=== PATIENT | female | born 1945 | race Caucasian/White ===

== ENCOUNTER 2017-07-31 05:22 | Emergency (ER) | payer MEDICARE ==
[2017-07-31] MEDS ORDERED: 0.9 % SODIUM CHLORIDE 1,000 ML BAG IV ONE (05:33)
[2017-07-31] MEDS ORDERED: MORPHINE SULFATE 5 MG/ML PFS IVP ONE (05:33)
[2017-07-31] MEDS ORDERED: ACETAMINOPHEN 1,000 MG/100 ML BTL IVPB ONE (05:33)
--- NOTE | 2017-07-31 05:36 | Emergency Department Record ---
History of Present Illness - General Chief complaint: Pain Stated complaint: HIP PAIN Time Seen by Provider: 07/31/17 05:30 Source: Patient, Family Mode of Arrival: Ambulatory Limitations: No limitations - History of Present Illness Initial comments: 72 yo female presents with left hip pain. She reports she was walking on her porch and turned when the pain initially started. No fall or blunt trauma. The pain is sharp with any movement. She has a history of sciatica on the right side. The pain does not radiate beyond the hip. No numbness or tingling on the left. No history of hip surgery on the left side. No leg swelling, No abnormal warmth or coolness. Her PCP is the [facility]. She does not see an orthopedist. MD Complaint: Joint pain -: Hour(s) (9.5) Location: Left, Other (hip) -: Yes Arthralgia, No Fever, Yes Myalgia, No Associated dyspnea, No Associated chest pain Radiation: Proximal Quality: Sharp Consistency: Constant Improves with: Immobilization Worsens with: Palpation, Walking, Weight bearing Associated Symptoms: Denies other symptoms - Related Data Previous Rx's Medication Instructions Recorded Hydrocodone/Acetaminophen [[place] 1 tab PO Q8H PRN #20 tab 07/31/17 5mg/325mg] Promethazine HCl [Phenergan] 12.5 mg PO Q8H PRN #15 tablet 07/31/17 Allergies Allergy/AdvReac Type Severity Reaction Status Date / Time No Known Allergies Allergy Unverified 04/23/17 12:57 Review of Systems Constitutional: Denies: Chills, Fever, Malaise, Weakness Eyes: Denies: Eye discharge, Eye pain, Photophobia, Vision change ENT: Denies: Congestion, Throat pain Respiratory: Denies: Cough Cardiovascular: Denies: Chest pain, Palpitations, Syncope Endocrine: Denies: Fatigue Gastrointestinal: Denies: Abdominal pain, Diarrhea, Nausea, Vomiting Genitourinary: Denies: Dysuria, Urgency Musculoskeletal: Reports: Arthralgia, Back pain, Myalgia. Denies: Joint swelling Skin: Denies: Bruising, Change in color, Rash Neurological: Denies: Confusion, Headache, Numbness, Paresthesias, Tingling, Tremors, Weakness Psychiatric: Reports: Anxiety Hematological/Lymphatic: Denies: Blood Clots, Easy bleeding, Easy bruising, Swollen glands Physical Exam - General General Appearance: Alert, Oriented x3, Cooperative, No acute distress Limitations: No limitations - Head Head exam: Atraumatic, Normocephalic, Normal inspection - Eye Eye exam: Normal appearance. negative: Conjunctival injection - ENT ENT exam: Normal exam, Mucous membranes moist Ear exam: Normal external inspection Nasal Exam: Normal inspection - Neck Neck exam: Normal inspection - Respiratory Respiratory exam: Normal lung sounds bilaterally. negative: Respiratory distress, Rhonchi, Stridor, Wheezes - Cardiovascular Cardiovascular Exam: Regular rate, Normal rhythm, Normal heart sounds Peripheral Pulses: 2+: Dorsalis Pedis (L) - GI/Abdominal GI/Abdominal exam: Soft. negative: Tenderness - Rectal Rectal exam: Deferred - exam: Deferred - Extremities Extremities exam: Normal inspection, Normal capillary refill, Tenderness. negative: Calf tenderness, Full ROM, Joint swelling, Pedal edema - Back Back exam: Reports: Normal inspection, Muscle spasm (left glutteal area tender to palpation). Denies: CVA tenderness (R), CVA tenderness (L) - Neurological Neurological exam: Alert, Normal gait, Oriented X3. negative: Altered, Motor sensory deficit - Psychiatric Psychiatric exam: Normal affect, Normal mood. negative: Agitated, Anxious - Skin Skin exam: Dry, Intact, Normal color, Warm Course - Reevaluation(s) Reevaluation #1: 07/31/17 06:43 The XR was reviewed No acute fracture or dislocation Mild degenerative changes on the prelim read. The patient reports some improvement of pain control. 07/31/17 07:13 The patient is feeling much better and reports she is comfortable for DC We discussed close follow up and and reasons to return to the ED Medical Decision Making - Lab Data Result diagrams: 07/31/17 05:55 07/31/17 05:55 Disposition Disposition: Discharge Clinical Impression: Hip pain, left Disposition: Home, Self-Care Condition: (1) Good Instructions: Hip Pain (ED) Additional Instructions: Follow up with your doctor as scheduled today for close follow up of your hip pain Prescriptions: Hydrocodone/Acetaminophen [[place] 5mg/325mg] 1 tab PO Q8H PRN #20 tab PRN Reason: Pain - General Promethazine HCl [Phenergan] 12.5 mg PO Q8H PRN #15 tablet PRN Reason: Nausea Forms: Patient Portal Access Time of Disposition: 07:14 Quality - Quality Measures Quality Measures: N/A - Blood Pressure Screening Does Patient Have Any of the Following: No Blood Pressure Classification: Hypertensive Reading Systolic Measurement: 156 Diastolic Measurement: 65 Screening for High Blood Pressure: < Pre-Hypertensive BP, F/U Documented > [ [id number]] Pre-Hypertensive Follow-up Interventions: Referral to alternative/primary care provider.
[2017-07-31] MEDS ORDERED: ONDANSETRON HCL IV 4 MG/2 ML VIAL IVP ONE (05:43)
[2017-07-31 06:02] LABS: BASO % 0.2 % (0-6); EOS % 2.6 % (0-6); GRAN % 68.2 % (47-80); HEMATOCRIT 37.3 % (35.0-47.0); HEMOGLOBIN 12.4 gm/dl (11.6-16.0); LYMPH % 21.9 % (16-45); MEAN CORPUSCULAR HEMOGLOBIN 30.9 pg (27-33); MEAN CORPUSCULAR HGB CONC 33.2 g/dl (32-36); MEAN PLATELET VOLUME 9.8 fl (7.4-10.4); MONO % 7.1 % (0-9); PLATELET COUNT 250 K/uL (130-400); RED BLOOD COUNT 4.01 M/uL (3.80-5.40); WHITE BLOOD COUNT W/O DIFF 8.8 K/uL (4.2-12.2)
[2017-07-31] MEDS ORDERED: PROMETHAZINE HCL 25 MG TABLET PO ONE (07:13)
[2017-07-31] MEDS ORDERED: HYDROCODONE/APAP 5/325MG TABLET PO ONE (07:13)
--- NOTE | 2017-08-01 07:36 | RADIOLOGY REPORT ---
EXAM: PELVIS AND LEFT HIP HISTORY: PAIN. TECHNIQUE: AP view of the pelvis and two views of the left hip were obtained. Comparison: None. FINDINGS: Negative for fracture or dislocation. The soft tissues are unremarkable. The joint spaces are preserved. IMPRESSION: NEGATIVE PELVIS AND LEFT HIP EXAMINATION. JOB NUMBER: [id number] MTDD
== END 2017-07-31 07:25 | disposition home or self-care (01) ==
LOC: ER 05:22
DX: M25.552 Pain in left hip (principal)
CPT/HCPCS: 99284 ×2; 96365; 96375; 85025; 80048; 73502; J2405; J2270; J7030; Q0170

== ENCOUNTER 2018-09-25 23:07 | Emergency (ER) | payer MEDICARE ==
--- NOTE | 2018-09-25 23:47 | Emergency Department Record ---
History of Present Illness - General Chief complaint: Toothache Stated complaint: FACIAL SWELLING Time Seen by Provider: 09/25/18 23:33 Source: Patient Mode of Arrival: Ambulatory Limitations: No limitations - History of Present Illness Initial comments: pt had a sudden onset of swelling in l lower jaw after eating cashews. she has a feeling of pressure but minimal pain. she has had a dental abscess in the past. she does not need pain meds as she has some at home MD complaint: Tooth pain Onset/Timin -: Minutes(s) Quality: Aching Context- Dental: History of dental caries Associated Symptoms: Toothache - Related Data Previous Rx's Medication Instructions Recorded Hydrocodone/Acetaminophen [[place] 1 tab PO Q8H PRN #20 tab 07/31/17 5mg/325mg] Amoxicillin/Potassium Clav 1 tab PO BID #14 tab 09/25/18 [Augmentin 875-125 Tablet] Allergies Allergy/AdvReac Type Severity Reaction Status Date / Time artificial sweeteners Allergy Mild hives Uncoded 08/20/17 11:33 Travel Screening - Travel/Exposure Within Last 30 Days Have you traveled within the last 30 days?: No - Travel/Exposure Within Last Year Have you traveled outside the [place] in the last year?: No - Additonal Travel Details Have you been exposed to anyone with a communicable illness?: No - Travel Symptoms Symptom Screening: None Review of Systems Reviewed: No additional complaints except as noted below Constitutional: Reports: As per HPI. Denies: Chills, Fever, Malaise, Night sweats, Weakness, Weight change Eyes: Reports: As per HPI. Denies: Eye discharge, Eye pain, Photophobia, Vision change ENT: Reports: As per HPI, Dental pain. Denies: Congestion, Ear pain, Epistaxis , Hearing loss, Throat pain Respiratory: Reports: As per HPI. Denies: Cough, Dyspnea, Hemoptysis, Stridor, Wheezes Cardiovascular: Reports: As per HPI. Denies: Arrhythmia, Chest pain, Dyspnea on exertion, Edema, Murmurs, Orthopnea, Palpitations, Paroxysmal nocturnal dyspnea, Rheumatic Fever, Syncope Endocrine: Reports: As per HPI. Denies: Fatigue, Heat or cold intolerance, Polydipsia, Polyuria Gastrointestinal: Reports: As per HPI. Denies: Abdominal pain, Constipation, Diarrhea, Hematemesis, Hematochezia, Melena, Nausea, Vomiting Genitourinary: Reports: As per HPI. Denies: Abnormal menses, Discharge, Dyspareunia, Dysuria, Frequency, Hematuria, Incontinence, Retention, Urgency Musculoskeletal: Reports: As per HPI. Denies: Arthralgia, Back pain, Gout, Joint swelling, Myalgia, Neck pain Skin: Reports: As per HPI. Denies: Bruising, Change in color, Change in hair/ nails, Lesions, Pruritus, Rash Neurological: Reports: As per HPI. Denies: Abnormal gait, Confusion, Headache, Numbness, Paresthesias, Seizure, Tingling, Tremors, Vertigo, Weakness Psychiatric: Reports: As per HPI. Denies: Anxiety, Auditory hallucinations, Depression, Homicidal thoughts, Suicidal thoughts, Visual hallucinations Hematological/Lymphatic: Reports: As per HPI. Denies: Anemia, Blood Clots, Easy bleeding, Easy bruising, Swollen glands Past Medical History - SOCIAL HISTORY Smoking Status: Never smoker Alcohol Use: None Drug Use: None - RESPIRATORY Hx Respiratory Disorders: No - CARDIOVASCULAR Hx Cardio Disorders: Yes Hx Hypertension: Yes Comment:: "small vessel disease" - NEURO Hx Neuro Disorders: No - GI Hx GI Disorders: No - Hx Genitourinary Disorders: No - ENDOCRINE Hx Endocrine Disorders: Yes Hx Diabetes: Yes - MUSCULOSKELETAL Hx Musculoskeletal Disorders: No Hx Back Injury: Yes (meningitis, sx at L4 - L5) - PSYCH Hx Psych Problems: No - HEMATOLOGY/ONCOLOGY Hx Hematology/Oncology Disorders: No Family Medical History Any Significant Family History?: No Hx Anxiety: Brother/Sister Hx Diabetes: Mother Hx Heart Disease: Father, Mother *Heart Comment: Father-90& occluded carotid Physical Exam - General General Appearance: Alert, Oriented x3, Cooperative, Mild distress - Head Head exam: Normal inspection - Eye Eye exam: Normal appearance, PERRL, EOMI Pupils: Normal accommodation - ENT ENT exam: Normal exam, Mucous membranes moist, Normal external ear exam, Normal orophraynx, TM's normal bilaterally Ear exam: Normal external inspection. negative: External canal tenderness Nasal Exam: Normal inspection. negative: Discharge, Sinus tenderness Mouth exam: Normal external inspection, Tongue normal Teeth exam: Dental caries, Dental tenderness #, Gingival enlargement, Other ( swelling of l lower jaw) Throat exam: Normal inspection. negative: Tonsillar erythema, Tonsillar exudate - Neck Neck exam: Normal inspection, Full ROM. negative: Tenderness - Respiratory Respiratory exam: Normal lung sounds bilaterally. negative: Respiratory distress - Cardiovascular Cardiovascular Exam: Normal rhythm, Normal heart sounds, Tachycardia - GI/Abdominal GI/Abdominal exam: Soft, Normal bowel sounds. negative: Tenderness - Rectal Rectal exam: Deferred - exam: Deferred - Extremities Extremities exam: Normal inspection, Full ROM, Normal capillary refill. negative: Tenderness - Back Back exam: Reports: Normal inspection, Full ROM. Denies: Muscle spasm, Rash noted, Tenderness - Neurological Neurological exam: Alert, CN II-XII intact, Normal gait, Oriented X3 - Psychiatric Psychiatric exam: Normal affect, Normal mood - Skin Skin exam: Dry, Intact, Normal color, Warm Course Vital Signs 09/25/18 23:21 Temperature 98.4 F Pulse Rate 114 H Respiratory 18 Rate Blood Pressure 163/67 Pulse Ox 95 Disposition Disposition: Discharge Clinical Impression: Dental abscess Disposition: Home, Self-Care Condition: (1) Good Instructions: Dental Abscess (ED) Additional Instructions: follow up with a dentist cami. moist heat to jaw. sleep elevated Prescriptions: Amoxicillin/Potassium Clav [Augmentin 875-125 Tablet] 1 tab PO BID #14 tab Quality - Quality Measures Quality Measures: N/A - Blood Pressure Screening Does Patient Have Any of the Following: Active Dx of HTN Blood Pressure Classification: Hypertensive Reading Systolic Measurement: 163 Diastolic Measurement: 67 Screening for High Blood Pressure: Patient Exclusion, Hx of HTN [G9744]
[2018-09-25] MEDS ORDERED: AMOXICILLIN/POTASSIUM CLAV 875MG/125MG TABLET PO ONE (23:48)
== END 2018-09-26 | disposition home or self-care (01) ==
LOC: ER 23:07
DX: K04.7 Periapical abscess without sinus (principal); I10 Essential (primary) hypertension; E11.9 Type 2 diabetes mellitus without complications
CPT/HCPCS: 99282

== ENCOUNTER 2019-03-16 20:34 | Emergency (ER) | payer MEDICARE ==
--- NOTE | 2019-03-16 21:15 | Emergency Department Record ---
History of Present Illness - General Chief complaint: Rectal bleeding Stated complaint: BLEEDING HEMOROID Time Seen by Provider: 03/16/19 21:09 Source: Patient Mode of Arrival: Ambulatory Limitations: No limitations - History of Present Illness Initial comments: 74 yo female presents to ED for evaluation of rectal bleeding and "rectal pressure" that began this afternoon. Patient reports a history of hemorrhoids, denies loose stools, abdominal pain, flank pain, or recent illness. Patient reports blood with bowel movement this evening prompting visit to the ED to determine if "silver nitrate is needed to stop the bleeding". Patient denies the use of anticoagulation medications. Patient did use hemorrhoid suppository prior to arrival. MD complaint: Blood streaked stool Onset/Timin -: Hour(s) Radiation: None Consistency: Constant Improves with: Rest Worsens with: Bowel movement Context: Hemorrhoids Associated Symptoms: Denies other symptoms Treatments Prior to Arrival: None - Related Data Home Medications Medication Instructions Recorded Confirmed Last Taken Acetaminophen [Tylenol 325Mg] 650 mg PO QHS 03/16/19 03/16/19 Unknown Allergies Allergy/AdvReac Type Severity Reaction Status Date / Time artificial sweeteners Allergy Mild hives Uncoded 08/20/17 11:33 Travel Screening - Travel/Exposure Within Last 30 Days Have you traveled within the last 30 days?: No - Travel Symptoms Symptom Screening: None Review of Systems Constitutional: Denies: Chills, Fever, Malaise, Night sweats Eyes: Denies: Eye discharge, Eye pain ENT: Denies: Congestion, Ear pain, Epistaxis Respiratory: Denies: Cough, Dyspnea Cardiovascular: Denies: Chest pain, Dyspnea on exertion Endocrine: Denies: Fatigue, Heat or cold intolerance Gastrointestinal: Reports: Hematochezia. Denies: Abdominal pain, Nausea, Vomiting Genitourinary: Denies: Incontinence, Retention Musculoskeletal: Denies: Arthralgia, Back pain Skin: Denies: Bruising, Change in color Neurological: Denies: Abnormal gait, Confusion, Headache, Seizure Psychiatric: Denies: Anxiety Hematological/Lymphatic: Denies: Anemia, Blood Clots Past Medical History - SOCIAL HISTORY Smoking Status: Never smoker Alcohol Use: None Drug Use: None - RESPIRATORY Hx Respiratory Disorders: No - CARDIOVASCULAR Hx Cardio Disorders: Yes Hx Hypertension: Yes Comment:: "small vessel disease" - NEURO Hx Neuro Disorders: No - GI Hx GI Disorders: No - Hx Genitourinary Disorders: No - ENDOCRINE Hx Endocrine Disorders: Yes Hx Diabetes: Yes - MUSCULOSKELETAL Hx Musculoskeletal Disorders: No Hx Back Injury: Yes (meningitis, sx at L4 - L5) - PSYCH Hx Psych Problems: No - HEMATOLOGY/ONCOLOGY Hx Hematology/Oncology Disorders: No Family Medical History Any Significant Family History?: Yes Hx Anxiety: Brother/Sister Hx Diabetes: Mother Hx Heart Disease: Father, Mother *Heart Comment: Father-90& occluded carotid Physical Exam - General General Appearance: Alert, Oriented x3, Cooperative, Mild distress Limitations: No limitations - Head Head exam: Atraumatic, Normocephalic, Normal inspection Head exam detail: negative: Abrasion, Contusion, Ivey's sign, General tenderness, Hematoma, Laceration - Eye Eye exam: Normal appearance. negative: Conjunctival injection, Periorbital swelling, Periorbital tenderness, Scleral icterus - ENT Ear exam: negative: Auricular hematoma, Auricular trauma Nasal Exam: negative: Active bleeding, Discharge, Dried blood, Foreign body Mouth exam: negative: Drooling, Laceration, Muffled voice, Tongue elevation Throat exam: negative: Tonsillar erythema, Tonsillomegaly, R peritonsillar mass, L peritonsillar mass - Neck Neck exam: Normal inspection. negative: Meningismus, Tenderness - Respiratory Respiratory exam: Normal lung sounds bilaterally. negative: Rales, Respiratory distress, Rhonchi, Stridor - Cardiovascular Cardiovascular Exam: Normal rhythm, Normal heart sounds, Tachycardia - GI/Abdominal GI/Abdominal exam: Soft. negative: Rebound, Rigid, Tenderness - Rectal Rectal exam: Heme (+) stool, Normal rectal tone, Other (No external hemorrhoids are present on examination). negative: Decreased rectal tone - exam: Deferred - Extremities Extremities exam: Normal inspection - Back Back exam: Denies: CVA tenderness (R), CVA tenderness (L) - Neurological Neurological exam: Alert, Normal gait, Oriented X3 - Psychiatric Psychiatric exam: Normal affect, Normal mood - Skin Skin exam: Normal color. negative: Abrasion Type of lesion: negative: abrasion Course Vital Signs 03/16/19 20:51 Temperature 98.5 F Pulse Rate [ 118 H Pulse Ox Probe] Respiratory 20 Rate Blood Pressure 171/77 [Left Arm] Pulse Ox 99 - Reevaluation(s) Reevaluation #1: 03/16/19 21:26 Patient was seen and examined, no external hemorrhoids are present on examination. Rectal examination is heme positive on exam, no pain on examination. No abdominal pain symptoms are present on examination, and colitis or inflammatory bowel condition appears very unlikely based on the patient's examination. History and examination appear c/w internal hemorrhoids. Recommended stool softeners and rectal suppositories as needed. Patient appears stable for discharge at this time. Disposition Disposition: Discharge Clinical Impression: Internal hemorrhoid, bleeding Disposition: Home, Self-Care Condition: (2) Stable Instructions: Hemorrhoids (ED) Additional Instructions: Return to ED if your symptoms worsen or if you have any concerns. Stool softeners and Tucks as directed. Follow-up with your family doctor in 3-5 days as directed. Forms: Patient Portal Access Time of Disposition: 21:15 Quality - Quality Measures Quality Measures: N/A - Blood Pressure Screening Does Patient Have Any of the Following: Active Dx of HTN Blood Pressure Classification: Hypertensive Reading Systolic Measurement: 171 Diastolic Measurement: 77 Screening for High Blood Pressure: Patient Exclusion, Hx of HTN [G9744]
== END 2019-03-16 21:34 | disposition home or self-care (01) ==
LOC: ER 20:34
DX: K64.8 Other hemorrhoids (principal); I10 Essential (primary) hypertension
CPT/HCPCS: 99282

== ENCOUNTER 2019-04-26 07:32 | Emergency (ER) | payer MEDICARE ==
[2019-04-26] MEDS ORDERED: DIAZEPAM 5 MG TABLET PO ONE (07:47)
[2019-04-26] MEDS ORDERED: KETOROLAC 30 MG/ML VIAL IVP ONE (07:48)
--- NOTE | 2019-04-26 07:56 | Emergency Department Record ---
History of Present Illness - General Chief complaint: Pain Stated complaint: HIP PAIN Time Seen by Provider: 04/26/19 07:46 Source: Patient, Family (son) Mode of Arrival: Ambulatory Limitations: No limitations - History of Present Illness Initial comments: Pt ambulates into the ED with son's assistance with complaint of waking with pain in the right buttock/hip. Pt denies trauma, injury, or fall. Hx of similar in the past from "arthritis". Over 10 years ago pt had leg pains that led to "back surgery in [place], [place]". Todays pain onset at home during the night, pt was painfree yesterday and when she went to bed. 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 She denies incontinence of urine or bowel. Pt took no meds this AM for pain prior to coming to the ED. She does use Tramadol at home from chronic pains related to arthritis. She is not using narcotic pain meds at this time. She has no other complaints. No recent illness, fever, chills, CP, VALERIE. - Related Data Home Medications Medication Instructions Recorded Confirmed Last Taken Atorvastatin Calcium [Lipitor] 10 mg PO DAILY 04/26/19 04/26/19 Unknown Tramadol HCl [Ultram] 50 mg PO BID PRN 04/26/19 04/26/19 Unknown Previous Rx's Medication Instructions Recorded Diazepam [Valium] 5 mg PO Q8H 3 Days #8 tab 04/26/19 Allergies Allergy/AdvReac Type Severity Reaction Status Date / Time artificial sweeteners Allergy Mild hives Uncoded 08/20/17 11:33 Travel Screening - Travel/Exposure Within Last 30 Days Have you traveled within the last 30 days?: No - Travel/Exposure Within Last Year Have you traveled outside the [place] in the last year?: No - Additonal Travel Details Have you been exposed to anyone with a communicable illness?: No - Travel Symptoms Symptom Screening: None Review of Systems Constitutional: Denies: Chills, Fever, Night sweats, Weakness Eyes: Denies: Eye discharge, Photophobia ENT: Denies: Congestion Respiratory: Denies: Cough, Wheezes Cardiovascular: Denies: Arrhythmia, Chest pain, Syncope Endocrine: Denies: Fatigue, Polyuria Gastrointestinal: Denies: Abdominal pain, Diarrhea, Nausea, Vomiting Musculoskeletal: Reports: As per HPI Skin: Denies: Bruising, Rash Neurological: Denies: Confusion, Headache, Tremors, Weakness Psychiatric: Denies: Anxiety Hematological/Lymphatic: Denies: Anemia Past Medical History - SOCIAL HISTORY Smoking Status: Never smoker Drug Use: None - RESPIRATORY Hx Respiratory Disorders: No - CARDIOVASCULAR Hx Cardio Disorders: Yes Hx Hypertension: Yes Comment:: "small vessel disease" - NEURO Hx Neuro Disorders: No - GI Hx GI Disorders: No - Hx Genitourinary Disorders: No - ENDOCRINE Hx Endocrine Disorders: Yes Hx Diabetes: Yes - MUSCULOSKELETAL Hx Musculoskeletal Disorders: No Hx Back Injury: Yes (meningitis, sx at L4 - L5) - PSYCH Hx Psych Problems: No - HEMATOLOGY/ONCOLOGY Hx Hematology/Oncology Disorders: No Family Medical History Any Significant Family History?: No Hx Anxiety: Brother/Sister Hx Diabetes: Mother Hx Heart Disease: Father, Mother *Heart Comment: Father-90& occluded carotid Physical Exam - General General Appearance: Alert, Oriented x3, Cooperative, Moderate distress - Head Head exam: negative: Atraumatic - Eye Eye exam: negative: Normal appearance, PERRL, EOMI - ENT ENT exam: Normal exam, Mucous membranes moist, Normal external ear exam, Normal orophraynx, TM's normal bilaterally - Neck Neck exam: Normal inspection, Full ROM. negative: Tenderness - Respiratory Respiratory exam: Normal lung sounds bilaterally. negative: Respiratory dis tress, Wheezes - Cardiovascular Cardiovascular Exam: Regular rate, Normal rhythm. negative: Tachycardia Peripheral Pulses: 2+: Radial (R), Radial (L) - GI/Abdominal GI/Abdominal exam: Soft, Normal bowel sounds. negative: Tenderness - Extremities Extremities exam: Normal inspection, Full ROM. negative: Calf tenderness, Joint swelling (Point tenderness to the right piriformis area without skin changes. Muscle tightness noted. Full motion at the hip right without crepitance, no right knee or ankle pain, no calf tenderness. ) - Back Back exam: Reports: Normal inspection. Denies: CVA tenderness (R), CVA tendern ess (L), Muscle spasm, Paraspinal tenderness, Vertebral tenderness - Neurological Neurological exam: Abnormal gait, Alert, Oriented X3, Reflexes normal. negativ e: Motor sensory deficit - Psychiatric Psychiatric exam: Normal affect, Normal mood - Skin Skin exam: Normal color. negative: Rash (no evidence Zoster in painful area of right buttock) Course Vital Signs 04/26/19 07:36 Temperature 97.2 F L Pulse Rate 83 Respiratory 18 Rate Blood Pressure 153/55 Pulse Ox 98 - Reevaluation(s) Reevaluation #1: 04/26/19 07:59 Seen and exam with son and RN present. IV meds for pain and muscle spasm. XRays ordered. Reevaluation #2: 04/26/19 08:27 XRAY with out FX. Meds helping. Discussed plan and dx with pt and son. Hoeme with Valium for spasm, ice/heat to area, fm dic follow up. Return here is and issues. Caution with meds at home. No driving, alcohol, or activities with meds. Medical Decision Making - Data Complexity MDM Data: X-Ray Ordered and/or Reviewed - Radiology Data Radiology results: Image reviewed -: Radiology Exam Interpreted by Myself Disposition Disposition: Discharge Clinical Impression: Spasm of piriformis muscle, Acute right hip pain Condition: (2) Stable Instructions: Pain Management in the Elderly (ED), RICE Therapy (ED) Additional Instructions: Take medications as ordered. No alcohol or driving with medications. Ice or heat to the area. See you primary doctor in 2-3 days to recheck or return to the ED as needed. Prescriptions: Diazepam [Valium] 5 mg PO Q8H 3 Days #8 tab Forms: Patient Portal Access Time of Disposition: 08:34 Quality - Quality Measures Quality Measures: N/A - Blood Pressure Screening Does Patient Have Any of the Following: No Blood Pressure Classification: Hypertensive Reading Systolic Measurement: 153 Diastolic Measurement: 55 Screening for High Blood Pressure: Patient Exclusion, Hx of HTN [G9744]
--- NOTE | 2019-04-26 14:43 | RADIOLOGY REPORT ---
EXAM: RIGHT HIP WITH AP PELVIS HISTORY: SUDDEN ONSET OF RIGHT HIP PAIN THIS MORNING, NO KNOWN INJURY. TECHNIQUE: AP view of the pelvis and AP and lateral views of the right hip were obtained. Comparison: No prior right hip series. AP pelvis from the left hip series of 07/31/17. FINDINGS: The right hip appears essentially negative. The joint space is maintained appearing essentially unchanged from the prior 07/31/17 study. No definite fracture, dislocation, or destructive lesion identified. IMPRESSION: THE RIGHT HIP APPEARS NEGATIVE. JOB [facility]BER: [id number] [facility]
== END 2019-04-26 08:42 | disposition home or self-care (01) ==
LOC: ER 07:32
DX: M25.551 Pain in right hip (principal); M62.838 Other muscle spasm; I10 Essential (primary) hypertension
CPT/HCPCS: 96374; 99283; J1885

== ENCOUNTER 2019-05-15 21:23 | Inpatient (IN) | payer MEDICARE ==
[2019-05-15] MEDS ORDERED: HYDROMORPHONE HCL 2 MG/ML VIAL IVP ONE (21:28)
[2019-05-15] MEDS ORDERED: DIAZEPAM (VALIUM) 5MG/ML **10ML VIAL IVP ONE (21:28)
--- NOTE | 2019-05-15 21:36 | Emergency Department Record ---
History of Present Illness - General Chief Complaint: Back Pain/Injury Stated Complaint: BACK PAIN Time Seen by Provider: 05/15/19 21:28 Source: Patient, EMS Mode of Arrival: EMS Limitations: No limitations - History of Present Illness Initial Comments: 74 yo female presents to ED for worsening back pain symptoms for the past 2 weeks. Patient reports recent MRI of the spine demonstrating "bulging discs" resulting in her pain symptoms. Patient was prescribed Hydrocodone for her pain symptoms through her PCP, patient reports worsening symptoms of spasms that have made ambulating too difficult due to her pain symptoms. Patient denies numbness, tingling, or extremity weakness symptoms. Patient also denies urinary retention symptoms. MD Complaint: Back pain Onset/Timin -: Week(s) Similar Symptoms Previously: Yes Radiation: Right leg Severity: Severe Quality: Burning Consistency: Constant Improves With: None Worsens With: None Associated Symptoms: Denies other symptoms Treatments Prior to Arrival: Prescription analgesics - Related Data Home Medications Medication Instructions Recorded Confirmed Last Taken Atorvastatin Calcium 20 mg PO DAILY 05/15/19 05/15/19 Unknown Allergies Allergy/AdvReac Type Severity Reaction Status Date / Time artificial sweeteners Allergy Mild hives Uncoded 05/15/19 21:25 Review of Systems Constitutional: Denies: Chills, Fever, Malaise, Night sweats Eyes: Denies: Eye discharge, Eye pain ENT: Denies: Congestion, Ear pain, Epistaxis Respiratory: Denies: Cough, Dyspnea Cardiovascular: Denies: Chest pain, Dyspnea on exertion Endocrine: Denies: Fatigue, Heat or cold intolerance Gastrointestinal: Denies: Abdominal pain, Nausea, Vomiting Genitourinary: Denies: Incontinence, Retention Musculoskeletal: Reports: Back pain. Denies: Arthralgia, Gout, Joint swelling Skin: Denies: Bruising, Change in color Neurological: Denies: Abnormal gait, Confusion, Headache, Seizure Psychiatric: Denies: Anxiety Hematological/Lymphatic: Denies: Anemia, Blood Clots Past Medical History - SOCIAL HISTORY Smoking Status: Never smoker Drug Use: None - RESPIRATORY Hx Respiratory Disorders: No - CARDIOVASCULAR Hx Cardio Disorders: Yes Hx Hypertension: Yes Comment:: "small vessel disease" - NEURO Hx Neuro Disorders: No - GI Hx GI Disorders: No - Hx Genitourinary Disorders: No - ENDOCRINE Hx Endocrine Disorders: Yes Hx Diabetes: Yes - MUSCULOSKELETAL Hx Musculoskeletal Disorders: No Hx Back Injury: Yes (meningitis, sx at L4 - L5) - PSYCH Hx Psych Problems: No - HEMATOLOGY/ONCOLOGY Hx Hematology/Oncology Disorders: No Family Medical History Hx Anxiety: Brother/Sister Hx Diabetes: Mother Hx Heart Disease: Father, Mother *Heart Comment: Father-90& occluded carotid Physical Exam - General General Appearance: Alert, Oriented x3, Cooperative, Moderate distress (due to pain symptoms) Limitations: No limitations - Head Head exam: Atraumatic, Normocephalic, Normal inspection Head exam detail: negative: Abrasion, Contusion, Ivey's sign, General tenderness, Hematoma, Laceration - Eye Eye exam: Normal appearance. negative: Conjunctival injection, Periorbital swelling, Periorbital tenderness, Scleral icterus - ENT Ear exam: negative: Auricular hematoma, Auricular trauma Nasal Exam: negative: Active bleeding, Discharge, Dried blood, Foreign body Mouth exam: negative: Drooling, Laceration, Muffled voice, Tongue elevation - Neck Neck exam: Normal inspection. negative: Meningismus, Tenderness - Respiratory Respiratory exam: Normal lung sounds bilaterally. negative: Rales, Respiratory distress, Rhonchi, Stridor - Cardiovascular Cardiovascular Exam: Regular rate, Normal rhythm, Normal heart sounds - GI/Abdominal GI/Abdominal exam: Soft. negative: Rebound, Rigid, Tenderness - Rectal Rectal exam: Deferred - exam: Deferred - Extremities Extremities exam: Normal inspection. negative: Pedal edema, Tenderness - Neurological Neurological exam: Alert, Oriented X3. negative: Motor sensory deficit (EHL 5/5 and symmetric bilaterally) - Skin Skin exam: Normal color. negative: Abrasion Type of lesion: negative: abrasion Course - Reevaluation(s) Reevaluation #1: 05/15/19 21:30 MRI lumbar spine was reviewed from 05/01/19: Signal enhancement of the root of S1, may represent disc bulge vs. scarring from previous bryce-laminectomy Mild disc bulge L4-L5 without canal stenosis Advanced facet arthropathy Multi-level foraminal narrowing of varying degrees Patient was seen and examined, will administer Valium and Hydromorphone IV and reassess. Reevaluation #2: 05/15/19 21:57 Patient reassessed, reports that she is feeling much more comfortable. Will monitor for respiratory depression via oxygen monitoring. Reevaluation #3: 05/15/19 22:40 Patient was reassessed, reports that her pain symptoms are improved however her spasms continue to be intermittently result in pain with position changes. Will admit for pain control and possible PT/OT consultation tomorrow. Patient is in agreement with the plan of care as discussed. Reevaluation #4: 05/16/19 06:50 Case was discussed with Lee Jay NP, will accept admission at this time. Disposition Disposition: Admit Clinical Impression: Intractable low back pain Disposition: Still a Patient at [facility] Decision to Admit: Admit from ER Decision to Admit Date: 05/15/19 Decision to Admit Time: 22:42 Condition: (2) Stable Time of Disposition: 22:42 Quality - Quality Measures Quality Measures: N/A - Blood Pressure Screening Does Patient Have Any of the Following: Active Dx of HTN Blood Pressure Classification: Hypertensive Reading Systolic Measurement: 141 Diastolic Measurement: 68 Screening for High Blood Pressure: Patient Exclusion, Hx of HTN [[id number]]
[2019-05-15] MEDS ORDERED: 0.9 % SODIUM CHLORIDE 1000ML 250 ML IV SCH (21:45)
[2019-05-15] MEDS ORDERED: METHYLPREDNISOLONE PF 125MG/VIAL IVP ONE (22:12)
[2019-05-15] MEDS: HYDROMORPHONE HCL 2 MG/ML VIAL IVP PRN (23:36)
[2019-05-15] MEDS ORDERED: ATORVASTATIN 20 MG TABLET PO SCH (23:45)
[2019-05-15] MEDS ORDERED: LISINOPRIL 10 MG TABLET PO SCH (23:45)
[2019-05-15] MEDS: LISINOPRIL 10 MG TABLET PO SCH (23:57)
[2019-05-15] MEDS: SULFASALAZINE 500 MG PO SCH (23:59)
[2019-05-16] MEDS: DIAZEPAM (VALIUM) 5MG/ML **10ML VIAL IVP PRN ×3 (02:30→23:02)
[2019-05-16] MEDS: HYDROMORPHONE HCL 2 MG/ML VIAL IVP PRN ×3 (02:31→06:46)
[2019-05-16] MEDS ORDERED: ALBUTEROL HFA 8 GM INHALER INH SCH (06:00)
[2019-05-16] MEDS ORDERED: ALBUTEROL HFA 8 GM INHALER INH PRN (08:49)
[2019-05-16] MEDS ORDERED: PROMETHAZINE HCL 25 MG TABLET PO PRN (09:32)
[2019-05-16] MEDS: HYDROCODONE/APAP 10/325 TABLET PO PRN ×2 (09:37→23:04)
[2019-05-16] MEDS: HYDROCHLOROTHIAZIDE 25 MG TABLET PO SCH (09:38)
[2019-05-16] MEDS: SULFASALAZINE 500 MG PO SCH ×2 (09:38→23:06)
--- NOTE | 2019-05-16 10:41 | History & Physical ---
History of Present Illness - Date of Service Date of Service for History & Physical: 05/16/19 - History of Present Illness Admitting Diagnosis: Intractable low back pain. History degenerative disc disease History of Present Illness: 74 year old female patient presented to ED for intractable worsening of her chronic low-back pain. Patient has noted progressive worsening of symptoms over the past 2-4 weeks. She has been seen by her PCP twice, and had an MRI completed 05/01/19, which indicated prior hemilaminectomy changes at L5-S1, post- surgical scarring vs posterior displacement of S1 nerve root secondary to disk bulge and/or small right paracentral disk protrusion, mild disk bulging at L4-L5 without central canal stenosis, advanced facet arthropathy, and multilevel neural foraminal narrowing. Patient states she was given Prednisone and [place] 5/325 from PCP with only minimal relief from the Prednisone, and no relief from [place]. Also states she has been referred to Dr. Gonzalez for pain management and is scheduled to see him this coming . Denies any new injury or trauma. Patient noted Friday morning sudden increase in pain level and was unable to get out of bed due to the pain. Reports low-back pain that radiates down her right buttock and right leg. Patient states the pain continued to progress, leading to her presenting to ED. Patient reports an active lifestyle at baseline, walking 4 miles per day and being independent with ADLs. Past medical history includes CKD stage 3, HTN, elevated lipids, cholecystectomy, CAD, RA, and previous hemilaminectomy at L5-S1. PCP: Ayah Caceres NP/Dr. Smyth Corrosion Control Technician: Dr. Luke ED Course: Solumedrol 125mg Valium 5mg Dilaudid 0.5mg 05/16/19: Patient A&O x 4, very uncomfortable in bed. Patient visably shaking and tearful due to increased pain. Patient denies being able to eat or drink a normal diet for several days prior to arrival due to increased pain. Reports minimal relief from [place], Valium, and Solumedrol. Noted partial pain relief from Dilaudid. Travel Screening - Travel/Exposure Within Last 30 Days Have you traveled within the last 30 days?: No - Travel/Exposure Within Last Year Have you traveled outside the [place] in the last year?: No - Additonal Travel Details Have you been exposed to anyone with a communicable illness?: No - Travel Symptoms Symptom Screening: None Review of Systems Reviewed: No additional complaints except as noted below Constitutional: Denies: Chills, Fever, Malaise, Night sweats Eyes: Denies: Eye discharge, Eye pain ENT: Denies: Congestion, Ear pain, Epistaxis Respiratory: Denies: Cough, Dyspnea Cardiovascular: Denies: Chest pain, Dyspnea on exertion Endocrine: Denies: Fatigue, Heat or cold intolerance Gastrointestinal: Denies: Abdominal pain, Nausea, Vomiting Genitourinary: Denies: Incontinence, Retention Musculoskeletal: Reports: Back pain. Denies: Arthralgia, Gout, Joint swelling Skin: Denies: Bruising, Change in color Neurological: Denies: Abnormal gait, Confusion, Headache, Seizure Psychiatric: Denies: Anxiety Hematological/Lymphatic: Denies: Anemia, Blood Clots Past Medical History - SOCIAL HISTORY Smoking Status: Never smoker Drug Use: None - RESPIRATORY Hx Respiratory Disorders: No - CARDIOVASCULAR Hx Cardio Disorders: Yes Hx Hypertension: Yes Comment:: "small vessel disease" - NEURO Hx Neuro Disorders: No - GI Hx GI Disorders: No - Hx Genitourinary Disorders: No - ENDOCRINE Hx Endocrine Disorders: Yes Hx Diabetes: Yes - MUSCULOSKELETAL Hx Musculoskeletal Disorders: No Hx Back Injury: Yes (meningitis, sx at L4 - L5) - PSYCH Hx Psych Problems: No - HEMATOLOGY/ONCOLOGY Hx Hematology/Oncology Disorders: No Family Medical History Hx Anxiety: Brother/Sister Hx Diabetes: Mother Hx Heart Disease: Father, Mother *Heart Comment: Father-90& occluded carotid H&P Meds/Allergies - Allergies Allergies: Allergies Allergy/AdvReac Type Severity Reaction Status Date / Time artificial sweeteners Allergy Mild hives Uncoded 05/15/19 21:25 - Home Medications Home Medications Medication Instructions Recorded Confirmed Last Taken Atorvastatin Calcium 20 mg PO DAILY 05/15/19 05/15/19 Unknown - Active Medications Active Medications: Current Medications Hydrocodone Bitart/Acetaminophen ([place] 10mg/325mg) 1 each PO Q8H PRN PRN Reason: PAIN - MILD TO MODERATE (1-7) Last Admin: 05/16/19 09:37 Dose: 1 each Documented by: Albuterol Sulfate (Ventolin Hfa) 2 puff INH RESP.Q4H PRN PRN Reason: WHEEZING Atorvastatin Calcium (Lipitor) 20 mg PO QHS [place] Diazepam (Diazepam) 5 mg IVP Q8H PRN PRN Reason: SPASMS Last Admin: 05/16/19 10:39 Dose: 5 mg Documented by: Hydrochlorothiazide (Hctz 25mg) 25 mg PO DAILY ON LICENSE OF [facility] Last Admin: 05/16/19 09:38 Dose: 25 mg Documented by: Lisinopril (Zestril) 10 mg PO QHS ON LICENSE OF [facility] Last Admin: 05/15/19 23:57 Dose: 10 mg Documented by: Patient Own Med: Sulfasalazine 500 Mg Tablet 1 each PO BID ON LICENSE OF [facility] Last Admin: 05/16/19 09:38 Dose: 1 each Documented by: Promethazine HCl (Phenergan) 25 mg PO Q6H PRN PRN Reason: NAUSEA Last Admin: 05/16/19 09:37 Dose: 25 mg Documented by: Physical Exam - Vital Signs Vital Signs: Vital Signs - Last 24 Hrs Temp Pulse Pulse Resp BP BP BP 05/16/19 09:00 18 05/16/19 07:30 97.7 F 103 H 17 135/58 05/15/19 23:25 92 H 16 146/56 05/15/19 23:15 97.7 F 83 20 143/54 05/15/19 22:20 89 20 05/15/19 21:24 98.7 F 118 H 26 H 141/68 Pulse Ox 05/16/19 09:00 05/16/19 07:30 97 05/15/19 23:25 97 05/15/19 23:15 99 05/15/19 22:20 95 05/15/19 21:24 100 - General General Appearance: Alert, Oriented x3, Cooperative, Moderate distress (due to pain symptoms) Limitations: No limitations - Head Head exam: Atraumatic, Normocephalic, Normal inspection Head exam detail: negative: Abrasion, Contusion, Ivey's sign, General tenderness, Hematoma, Laceration - Eye Eye exam: Normal appearance. negative: Conjunctival injection, Periorbital swelling, Periorbital tenderness, Scleral icterus - ENT ENT exam: Normal exam, Mucous membranes moist Ear exam: Normal external inspection. negative: Auricular hematoma, Auricular trauma Nasal Exam: negative: Active bleeding, Discharge, Dried blood, Foreign body Mouth exam: negative: Drooling, Laceration, Muffled voice, Tongue elevation - Neck Neck exam: Normal inspection. negative: Meningismus, Tenderness - Respiratory Respiratory exam: Normal lung sounds bilaterally. negative: Rales, Respiratory distress, Rhonchi, Stridor - Cardiovascular Cardiovascular Exam: Normal rhythm, Normal heart sounds, Tachycardia Peripheral Pulses: 2+: Radial (R), Radial (L), Dorsalis Pedis (R), Dorsalis Pedis (L) - GI/Abdominal GI/Abdominal exam: Soft, Normal bowel sounds. negative: Rebound, Rigid, Tenderness - Rectal Rectal exam: Deferred - exam: Deferred - Extremities Extremities exam: Normal inspection. negative: Pedal edema, Tenderness - Neurological Neurological exam: Abnormal gait (due to pain), Alert, Oriented X3, Other (LLE strength > RLE strength) - Skin Skin exam: Dry, Normal color, Warm. negative: Abrasion Type of lesion: negative: abrasion Results - Labs Result Diagrams: 05/16/19 11:58 05/16/19 11:58 - Imaging and Cardiology Lumbar Spine MRI Status: Report reviewed VTE H&P Assessment - Risk for VTE Risk for VTE: Yes Risk Level: Moderate Risk Assessment Date: 05/16/19 Risk Assessment Time: 12:16 VTE Orders Placed or Will Be Placed: Yes Plan - Detailed Diagnosis and Plan (1) Intractable low back pain Current Visit: Yes Status: Acute Base Code: M54.5 - LOW BACK PAIN Comment: 05/16/19: - MRI 05/01/19: surgical hemilaminectomy changes at L5-S1, S1 nerve root signal chages due to surgical scarring vs posterior displacement of nerve root secondary to disck bulging or protrusion, disk bulging at L4-L5, advanced facet arthropathy, no lumbar spinal stenosis, multilevel neural foraminal narrowing - Valium 5mg IVP q8h prn - [place] 10/325, DC dilaudid due to urinary retention - Solumedrol 125mg IVP in ED, 60mg daily continued - Appt with Dr. Gonzalez scheduled (2) Urinary tract infection Current Visit: Yes Status: Acute Base Code: N39.0 - URINARY TRACT INFECTION, SITE NOT SPECIFIED Comment: 05/16/19: - UA: large leuk, 3-5 WBC - Rocephin 1gm IVP q24h - IV fluids NS 0.9% @ 75ml/hr - Encourage PO fluids (3) Urinary retention Current Visit: Yes Status: Acute Base Code: R33.9 - RETENTION OF URINE, UNSPECIFIED Comment: 05/16/19: - Bladder scan indicated >900ml, straight cath performed - Urinary retention due to UTI vs dilaudid use vs neuro changes due to disc bulging - DC dilaudid - Bladder scan q4h, straight cath prn - Consider neurosurgery consult if symptoms persist (4) DVT prophylaxis Current Visit: Yes Status: Acute Base Code: Z29.9 - ENCOUNTER FOR PROPHYLACTIC MEASURES, UNSPECIFIED Comment: 05/16/19: - Moderate risk due to age, hospitalization, and decreased mobility - Lovenox 40mg SQ daily (5) Full code status Current Visit: Yes Status: Acute Base Code: Z78.9 - OTHER SPECIFIED HEALTH STATUS Comment: 05/16/19: - Full code this admission
[2019-05-16 11:22] LABS: URINE APPEARANCE CLEAR; URINE BILIRUBIN NEGATIVE (NEGATIVE); URINE BLOOD NEGATIVE (NEGATIVE); URINE COLOR YELLOW; URINE GLUCOSE (UA) NEGATIVE (NEGATIVE); URINE KETONE NEGATIVE (NEGATIVE); URINE LEUKOCYTE ESTERASE LARGE (NEGATIVE); URINE NITRITE NEGATIVE (NEGATIVE); URINE PROTEIN NEGATIVE (NEGATIVE); URINE UROBILINOGEN 0.2 E.U./dL (0.20 - 1.00)
[2019-05-16 11:50] LABS: URINE BACTERIA NONE SEEN; URINE EPITHELIAL CELLS 0 - 2 (FEW); URINE RBC NONE SEEN (NONE SEEN)
[2019-05-16] MEDS ORDERED: CEFTRIAXONE 1GM/50ML BAG 1 GM/50 ML BAG IVPB SCH (12:00)
[2019-05-16] MEDS: METHYLPREDNISOLONE PF 125MG/VIAL IVP SCH (12:12)
[2019-05-16] MEDS ORDERED: MORPHINE SULFATE 10MG/1ML **1ML VIAL IVP SCH (12:15)
[2019-05-16] MEDS: GABAPENTIN 100 MG CAPSULE PO SCH ×2 (12:21→23:06)
[2019-05-16] MEDS: 0.9 % SODIUM CHLORIDE 1000ML 1,000 ML IV SCH (12:22)
[2019-05-16] MEDS: MORPHINE SULFATE 10MG/1ML **1ML VIAL IVP PRN ×2 (12:26→17:22)
[2019-05-16 12:35] LABS: ABSOLUTE NEUTROPHIL COUNT 12.16; HEMATOCRIT 37.2 % (35.0-47.0); HEMOGLOBIN 12.5 gm/dl (11.6-16.0); MEAN CELL VOLUME 92.1 fl (81-97); MEAN CORPUSCULAR HEMOGLOBIN 30.9 pg (27-33); MEAN CORPUSCULAR HGB CONC 33.6 g/dl (32-36); MEAN PLATELET VOLUME 9.4 fl (7.4-10.4); PLATELET COUNT 302 K/uL (130-400); RED BLOOD COUNT 4.04 M/uL (3.80-5.40); RED CELL DISTRIBUTION WIDTH 13.7 % (11.5-14.5); WHITE BLOOD COUNT W/O DIFF 14.5 K/uL (4.2-12.2)
[2019-05-16 12:52] LABS: ALB/GLOB RATIO 1.8 (1.1-1.8); ALBUMIN 4.7 g/dL (4.0-5.0); ALKALINE PHOSPHATASE 76 U/L (35-104); ALT/SGPT 22 U/L (<33); AST/SGOT 23 U/L (10.0-35.0); BLOOD UREA NITROGEN 21 mg/dL (8-23); CREATININE 0.9 mg/dL (0.5-0.9); EST GLOMERULAR FILTRATION RATE > 60 mL/min; GLUCOSE,RANDOM 175 mg/dL (74-109); TOTAL PROTEIN 7.3 g/dL (6.6-8.7)
[2019-05-16] MEDS: CEFTRIAXONE 1GM/50ML BAG 1 GM/50 ML BAG IVPB SCH (12:52)
[2019-05-16] MEDS: TAMSULOSIN HCL 0.4 MG CAP.ER.24H PO SCH (13:16)
[2019-05-16] MEDS: LISINOPRIL 10 MG TABLET PO SCH (23:05)
[2019-05-16] MEDS: ATORVASTATIN 20 MG TABLET PO SCH (23:06)
[2019-05-16] MEDS: SENNOSIDES/DOCUSATE SODIUM UD CAPSULE PO PRN (23:39)
[2019-05-17] MEDS: CEFTRIAXONE 1GM/50ML BAG 1 GM/50 ML BAG IVPB SCH ×3 (00:54→21:25)
[2019-05-17] MEDS: 0.9 % SODIUM CHLORIDE 1000ML 1,000 ML IV SCH ×2 (00:55→15:16)
[2019-05-17 06:28] LABS: ABSOLUTE NEUTROPHIL COUNT 7.06; BASO % 0.1 % (0-6); GRAN % 63.3 % (47-80); HEMATOCRIT 33.3 % (35.0-47.0); HEMOGLOBIN 10.8 gm/dl (11.6-16.0); LYMPH % 29.7 % (16-45); MEAN CELL VOLUME 94.9 fl (81-97); MEAN CORPUSCULAR HGB CONC 32.4 g/dl (32-36); MEAN PLATELET VOLUME 9.4 fl (7.4-10.4); MONO % 6.9 % (0-9); PLATELET COUNT 263 K/uL (130-400); RED BLOOD COUNT 3.51 M/uL (3.80-5.40); RED CELL DISTRIBUTION WIDTH 14.1 % (11.5-14.5); WHITE BLOOD COUNT W/O DIFF 11.2 K/uL (4.2-12.2)
[2019-05-17 06:34] LABS: MEAN CORPUSCULAR HEMOGLOBIN 30.7 pg (27-33)
[2019-05-17] MEDS: DIAZEPAM (VALIUM) 5MG/ML **10ML VIAL IVP PRN (06:45)
[2019-05-17] MEDS: HYDROCODONE/APAP 10/325 TABLET PO PRN (06:46)
[2019-05-17] MEDS ORDERED: MAGNESIUM HYDROXIDE 30 ML UDC PO PRN (09:08)
[2019-05-17] MEDS: HYDROCHLOROTHIAZIDE 25 MG TABLET PO SCH (09:10)
[2019-05-17] MEDS: GABAPENTIN 100 MG CAPSULE PO SCH (09:11)
[2019-05-17] MEDS: METHYLPREDNISOLONE PF 125MG/VIAL IVP SCH (09:11)
[2019-05-17] MEDS: TAMSULOSIN HCL 0.4 MG CAP.ER.24H PO SCH (09:11)
[2019-05-17] MEDS: ENOXAPARIN 40 MG/0.4 ML SYR SQ SCH (09:11)
[2019-05-17] MEDS: SENNOSIDES/DOCUSATE SODIUM UD CAPSULE PO PRN (09:13)
[2019-05-17] MEDS: SULFASALAZINE 500 MG PO SCH ×2 (09:13→21:25)
[2019-05-17] MEDS ORDERED: DIAZEPAM 5 MG/1 ML TUBX IVP PRN (10:15)
[2019-05-17] MEDS ORDERED: ZINC OXIDE 28.35 GM TUBE TOP PRN (12:50)
[2019-05-17] MEDS: MORPHINE SULFATE 10MG/1ML **1ML VIAL IVP PRN (13:34)
--- NOTE | 2019-05-17 14:08 | Rehab Evaluation ---
Patient Information - Patient Information Diagnosis: Intractable low back pain, history of DDD. Ordered Treatment: PT Evaluate and Treat Status: Initial Evaluation History: Detail (Patient presented to ED on 05/15/19 with complaints of worsening symptoms of back pain for the last 2-4 weeks. The patient was have difficulty getting out of bed.) Past Medical/Surgical Hx: PAST MEDICAL/SURGICAL HISTORY Past Surgical History andrew back abdominal sx to remove ectopic cardiac cath PMH - Respiratory Hx Respiratory Disorders No Hx Asthma Yes PMH - Cardiovascular Hx Cardiovascular Disorders Yes Hx Cardiac Catheterization Yes Hx Hypertension Yes Comment: "small vessel disease" PMH - Neuro Hx Neurological Disorders No Hx Neuropathy Yes PMH - GI Hx Gastrointestinal Disorders No Hx Pancreatitis Yes Comment: cholycyctectomy PMH - Hx Genitourinary Disorders No Patient No Hx Kidney Stones No: stage 2/3 CKD Hx Renal Disease Yes Hx Urinary Tract Infection Yes: many years ago PMH - Endocrine Hx Endocrine Disorders Yes Hx Diabetes Yes Hx Thyroid Disease No PMH - Musculoskeletal Hx Musculoskeletal Disorders No Hx Arthritis Yes Hx Back Injury Yes: meningitis, sx at L4 - L5 PMH - Psych Hx Psychiatric Problems No Hx Depression Yes Comment: 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 The patient had just begun walking with a 4 wheeled walker a few days prior to admission.) Social History: Detail (The patient lives in a farmhouse with her son with 3 steps and a handrail at one enterance and 3 steps with slabs inbetween and one railing at another enterance. The patient's bedroom and bathroom are on the main floor. The bathroom is equipped with a tub/shower combination with grab bar and a standard height toilet. The patient has a 4 wheeled walker and a sock aide.) Precautions: Eagle, Fall - Time With Patient Total Time Spent With Patient (Min): 30 Treatment Procedures: Detail (Initial Evaluation, low complexity.) Subjective Information - Subjective Information Per Patient (The patient was getting off from commode when PT arrived and had complaints of lower back and R LE level 4 using 0-10 pain scale.) Objective Data - Mental Status Patient Orientation: Oriented x3 - Visual Perception Appears within normal limits for therapeutic activities - ROM Other (The patient's LE AROM was generally WFL but not formally assessed secondary to pain complaints.) - Strength/Tone Other (Not tested secondary to pain complaints but generally WFL (patient was able to lift LE's into bed and to ambulate.)) - Bed Mobility Independent (The patient was independent with sit to sidelying to supine with gaurded movements and L LE lifting R LE.) - Transfers Independent (The patient was independent with stand to sit transfer with slow guarded movements.) - Balance Balance Sitting: Good Balance Standing: Fair (Patient used support of 4 wheeled walker to stand.) - Gait Detail (The patient ambulated with 4 wheeled walker 10 feet x 1 with supervision for safety and to handle IV. The patient ambulated with slow gaurded movements included shoulder hiking, trunk held ridgidly and slow careful steps. Slight LE tremoring occurred throughout ambulation. Patient used deep breathing techniques while ambulating to control pain.) Therapy Assessment - Therapy Assessment Detail (The patient is independent with mobility however all movements are gaurded due to pain level. The patient was only able to ambulate 10 feet. The patient's goal is to ambulate 20 - 25 feet (what is required at home to ambulate to bathroom and bedroom.) Feel the patient would benefit from PT to increase ambulation distance and for pain control while an inpatient and possibly Home PT upon discharge from [facility].) Problem List - Problem List Physical Therapy Problem List: Detail (1) Lower back and R LE pain. 2) Impaired ambulation (less then household distances) due to lower back pain. 3) Decreased ability to complete functional mobility and ADL's due to lower back pain.) Goals - Goals Physical Therapy Goals: 1) The patient will be independent with ambulation household distances with 4 wheeled walker ( 20 to 25 feet). 2) The patient will be ambulatory on stairs with use of railing with supervision of 1 for safety. 3) The patient will complete bed mobility and transfers at a functional speed with less guarded movement. Plan - Plan Physical Therapy Plan: PT 1 time a day for gait training on levels and stairs, modalities to decrease pain and gentle core stabilization exercises to improve lower back stability and lower back stretching exercises to reduce muscle spasms.
--- NOTE | 2019-05-17 14:13 | Rehab Evaluation ---
Patient Information - Patient Information Diagnosis: Intractable back pain Ordered Treatment: OT Evaluate and Treat Status: Initial Evaluation Surgery: No Past Medical/Surgical Hx: PAST MEDICAL/SURGICAL HISTORY Past Surgical History andrew back abdominal sx to remove ectopic cardiac cath PMH - Respiratory Hx Respiratory Disorders No Hx Asthma Yes PMH - Cardiovascular Hx Cardiovascular Disorders Yes Hx Cardiac Catheterization Yes Hx Hypertension Yes Comment: "small vessel disease" PMH - Neuro Hx Neurological Disorders No Hx Neuropathy Yes PMH - GI Hx Gastrointestinal Disorders No Hx Pancreatitis Yes Comment: cholycyctectomy PMH - Hx Genitourinary Disorders No Patient No Hx Kidney Stones No: stage 2/3 CKD Hx Renal Disease Yes Hx Urinary Tract Infection Yes: many years ago PMH - Endocrine Hx Endocrine Disorders Yes Hx Diabetes Yes Hx Thyroid Disease No PMH - Musculoskeletal Hx Musculoskeletal Disorders No Hx Arthritis Yes Hx Back Injury Yes: meningitis, sx at L4 - L5 PMH - Psych Hx Psychiatric Problems No Hx Depression Yes Comment: PTSD after PMH - Hematology/Oncology Hx Hematology/Oncology No Disorders Premorbid Status: Detail (Prior to intractable back pain, Pt was independent with all I/ADLs and functional mobility and driving. She uses a self-propelled vaccuum.) Social History: Detail (Pt lives with her son in a farmhouse with 3 steps at the entrance and bilateral hand-rails. There is also a back entrance with 3 step/slabs with a left side hand-rail. Her bedroom and bathroom are on the main level. The bathroom is equipped with a tub/shower with a non-slip surface, a grab bar inside and outside the shower, and a standard toilet with a sink on her right side for support in standing. She has a 4WW that she has been using the past week due to her back pain and her son has been assisting with transfers the past week, however she is now requiring to much assist and was taken to the hospital.) Precautions: [place], Fall - Time With Patient Total Time Spent With Patient (Min): 37 (1 eval) Treatment Procedures: Detail (OT eval: low complexity) Subjective Information - Subjective Information Per Patient (Ok to see per YESSICA Washburn. Pt agreeable to OT eval. Pt requesting pain meds to RN during session.) Objective Data - Pain Pain Present: Yes Pain Scale Used: Numeric (1 - 10) (Not quantified, but requesting pain meds, YESSICA gaitan.) - Mental Status Patient Orientation: Oriented x3 - Visual Perception Appears within normal limits for therapeutic activities - ROM Within normal limits - Strength/Tone Other (Not tested d/t back pain.) - Coordination Appears within normal limits for therapeutic activities - Bed Mobility Independent (EOB > supine with increased effort and log roll technique, increased pain throughout.) - Transfers Needs Assist (Supervision and verbal instructions for use of brakes of 4WW.) - Balance Balance Sitting: Fair Balance Standing: Fair - Sensation Intact - Gait Detail (Functional mobility ~6 feet within bedroom with largely increased time, effort, and pain, and use of 4WW. Limited by low back pain. Assist for IV line mgmt throughout.) - ADL's/IADL's Detail (Pt very painful this date and requesting to get back in bed post functional mobility. Pt reports she is unable to touch her toes at this point d/t back pain, however has a sock aide from her . Also likely unable to wipe during toileting. Continue to assess as Pt tolerates.) Therapy Assessment - Therapy Assessment Detail (Pt tolerating session fair, limited by low back pain. PLOF independent, now requiring assist for all ADLs and functional mobility due to pain. Pt [place] to [place], however is aware of functional deficits at this time limiting safety and independence at home, including inability to walk distances required to ambulate to her bathroom and kitchen. She reports her daughter can come from [place] to assist as needed.) Patient Education - Patient Education Teaching Topic: Equipment Use, Precautions Response: Return Demonstration, Verbalize Understanding Teaching Method: Discussion, Demonstration Teaching Recipient: Patient Barriers To Learning: None Problem List - Problem List Occupational Therapy Problem List: Detail (1. Decreased independence with total body dressing. 2. Decreased independence with showering. 3. Decreased functional endurance needed for safe and independent self-cares. 4. Decreased knowledge of safe 4WW use.) Goals - Goals Occupational Therapy Goals: 1. Pt will be independent with total body dressing using AE as needed. 2. Pt will be independent with showering using AE as needed. 3. Pt will demo increased functional endurance to allow for safe and independent self-cares anf functional TFs. 4. Pt will demo safe 4WW use. Prognosis - Prognosis Good Plan - Plan Occupational Therapy Plan: Pt will benefit from skilled IP OT to increase ability to participate in ADLs and increase safety and independence to facilitate DC home. OT 1-3x/wk to address OT goals.
[2019-05-17] MEDS: DIAZEPAM 5 MG TABLET PO PRN (15:03)
[2019-05-17] MEDS: HYDROCODONE/APAP 7.5/325MG TABLET PO PRN (15:06)
--- NOTE | 2019-05-17 16:21 | Physician Progress Note ---
Subjective - Date Date of Physician Progress Note: 05/17/19 - Subjective Subjective Comment: Low-back pain significantly improved from admission with Valium, Reese, Solumedrol, and Morphine. Patient has had significant urinary retention overnight requiring 2 straight cath attempts and a brandon placement. Flomax 0.4mg daily started. PT/OT eval today. Location: Back Severity scale (1-10): 3 Quality: Sharp Consistency: Constant Improves with: Immobilization, Medication Worsens with: Movement Objective - Multidiciplinary Team Multidiciplinary Team: OT, PT - Vital Signs Vital Signs: Vital Signs - Last 24 Hrs Temp Pulse Pulse Resp BP BP BP 05/17/19 10:04 97.8 F 135/85 05/17/19 07:50 72 16 05/17/19 07:30 97.8 F 75 18 135/85 05/17/19 00:00 97.9 F 103 H 18 103/47 05/16/19 16:55 98.9 F 115 H 19 150/58 Pulse Ox 05/17/19 10:04 05/17/19 07:50 05/17/19 07:30 95 05/17/19 00:00 95 05/16/19 16:55 95 - General General Appearance: Alert, Oriented x3, Cooperative, No acute distress Limitations: No limitations - Head Head exam: Atraumatic, Normocephalic, Normal inspection Head exam detail: negative: Abrasion, Contusion, Ivey's sign, General tenderness, Hematoma, Laceration - Eye Eye exam: Normal appearance. negative: Conjunctival injection, Periorbital swelling, Periorbital tenderness, Scleral icterus - ENT ENT exam: Normal exam, Mucous membranes moist Ear exam: Normal external inspection. negative: Auricular hematoma, Auricular trauma Nasal Exam: negative: Active bleeding, Discharge, Dried blood, Foreign body Mouth exam: negative: Drooling, Laceration, Muffled voice, Tongue elevation - Neck Neck exam: Normal inspection. negative: Meningismus, Tenderness - Respiratory Respiratory exam: Normal lung sounds bilaterally. negative: Rales, Respiratory distress, Rhonchi, Stridor - Cardiovascular Cardiovascular Exam: Normal rhythm, Normal heart sounds, Tachycardia Peripheral Pulses: 2+: Radial (R), Radial (L), Dorsalis Pedis (R), Dorsalis Pedis (L) - GI/Abdominal GI/Abdominal exam: Soft, Normal bowel sounds. negative: Rebound, Rigid, Tenderness - Rectal Rectal exam: Deferred - exam: Deferred - Extremities Extremities exam: Normal inspection. negative: Pedal edema, Tenderness - Back Back exam: Reports: Paraspinal tenderness - Neurological Neurological exam: Abnormal gait (due to pain, right-leg weakness noted), Alert, Oriented X3, Other (LLE strength > RLE strength) - Psychiatric Psychiatric exam: Anxious - Skin Skin exam: Dry, Normal color, Warm. negative: Abrasion Type of lesion: negative: abrasion Assessment and Plan - Assessment and Plan (1) Intractable low back pain Current Visit: Yes Status: Acute Base Code: M54.5 - LOW BACK PAIN Comment: 05/17/19: - MRI 05/01/19: surgical hemilaminectomy changes at L5-S1, S1 nerve root signal chages due to surgical scarring vs posterior displacement of nerve root secondary to disck bulging or protrusion, disk bulging at L4-L5, advanced facet arthropathy, no lumbar spinal stenosis, multilevel neural foraminal narrowing - Valium 5mg PO q8h prn - Reese 7.5/325 q8h prn, DC dilaudid due to urinary retention, Morphine 2-4mg IVP q4h prn. Has received 6mg of Morphine in past 24 hours - Solumedrol 125mg IVP in ED, 60mg daily continued - Appt with Dr. Gonzalez scheduled - PT/OT: weakness with ambulation, right leg weakness. Recommend continued hospitalization for additional PT/OT (2) Urinary tract infection Current Visit: Yes Status: Acute Base Code: N39.0 - URINARY TRACT INFECTION, SITE NOT SPECIFIED Comment: 05/17/19: - UA: large leuk, 3-5 WBC - Rocephin 1gm IVP q12h - IV fluids NS 0.9% @ 75ml/hr - Encourage PO fluids - Afebrile, WBC 11 (3) Urinary retention Current Visit: Yes Status: Acute Base Code: R33.9 - RETENTION OF URINE, UNSPECIFIED Comment: 05/17/19: - Urinary retention due to UTI vs opioid use vs neuro changes due to disc bulging - DC dilaudid - Bladder scan q4h, straight cath prn - Required brandon cather overnight due to multiple straight cath attempts - Start Flomax 0.4mg daily - Brandon removed, restart bladder scans q4h. Able to void 180ml with <50mL post- void residual. - Follow-up with urology if urinary retention continues and requires brandon placement (4) DVT prophylaxis Current Visit: Yes Status: Acute Base Code: Z29.9 - ENCOUNTER FOR PROPHYLACTIC MEASURES, UNSPECIFIED Comment: 05/17/19: - Moderate risk due to age, hospitalization, and decreased mobility - Lovenox 40mg SQ daily (5) Full code status Current Visit: Yes Status: Acute Base Code: Z78.9 - OTHER SPECIFIED HEALTH STATUS Comment: 05/17/19: - Full code this admission Results - Labs Result Diagrams: 05/17/19 06:27 05/17/19 06:27 Labs Last 24 Hours: Laboratory Results - last 24 hr 05/17/19 05/17/19 06:27 06:27 WBC 11.2 RBC 3.51 L Hgb 10.8 L Hct 33.3 L MCV 94.9 MCH 30.7 MCHC 32.4 RDW 14.1 Plt Count 263 MPV 9.4 Gran % 63.3 Lymphocytes % 29.7 Monocytes % 6.9 Eosinophils % 0.0 Basophils % 0.1 Absolute Neutrophils 7.06 Sodium 138 Potassium 4.6 H Chloride 104 Carbon Dioxide 24.0 Anion Gap 10.0 BUN 20 Creatinine 1.0 H Estimated GFR 58 Random Glucose 146 H Calcium 9.0 DVT/PE Assessment - Risk for VTE Risk for VTE: No Risk Level: Moderate Risk Assessment Date: 05/16/19 Risk Assessment Time: 12:16 VTE Orders Placed or Will Be Placed: Yes - Active Medicaitons Current Medications: Current Medications Hydrocodone Bitart/Acetaminophen ([place] 7.5mg/325mg) 1 each PO Q8HR PRN PRN Reason: PAIN - MILD TO MODERATE (1-7) Last Admin: 05/17/19 15:06 Dose: 1 each Documented by: Albuterol Sulfate (Ventolin Hfa) 2 puff INH RESP.Q4H PRN PRN Reason: WHEEZING Atorvastatin Calcium (Lipitor) 20 mg PO QHS [facility] Last Admin: 05/16/19 23:06 Dose: 20 mg Documented by: Diazepam (Valium) 5 mg PO Q8H PRN PRN Reason: MUSCLE SPASMS Last Admin: 05/17/19 15:03 Dose: 5 mg Documented by: Enoxaparin Sodium (Lovenox) 40 mg SQ DAILY [facility] Last Admin: 05/17/19 09:11 Dose: 40 mg Documented by: Gabapentin (Neurontin) 300 mg PO BID [facility] Hydrochlorothiazide (Hctz 25mg) 25 mg PO DAILY [facility] Last Admin: 05/17/19 09:10 Dose: 25 mg Documented by: Sodium Chloride () 1,000 mls @ 75 mls/hr IV .[id number] [facility] Last Admin: 05/17/19 15:16 Dose: 75 mls/hr Documented by: CEFTRIAXONE 1GM/50ML BAG (Ceftriaxone 1 Gm-D5w Bag) 1 gm in 50 mls @ 100 mls/hr IVPB Q12HR [facility] Last Infusion: 05/17/19 09:40 Dose: Infused Documented by: Lisinopril (Zestril) 10 mg PO QHS [facility] Last Admin: 05/16/19 23:05 Dose: 10 mg Documented by: Magnesium Hydroxide (Milk Of Magnesium) 30 ml PO DAILY PRN PRN Reason: INDIGESTION Last Admin: 05/17/19 09:51 Dose: 30 ml Documented by: Methylprednisolone Sodium Succinate (Solu-Medrol) 60 mg IVP DAILY [facility] Last Admin: 05/17/19 09:11 Dose: 60 mg Documented by: Morphine Sulfate (Morphine Sulfate) 4 mg IVP Q4H PRN PRN Reason: FOR MODERATE TO SEVERE PAIN Last Admin: 05/17/19 13:34 Dose: 2 mg Documented by: Patient Own Med: Sulfasalazine 500 Mg Tablet 1 each PO BID [facility] Last Admin: 05/17/19 09:13 Dose: 1 each Documented by: Promethazine HCl (Phenergan) 25 mg PO Q6H PRN PRN Reason: NAUSEA Last Admin: 05/16/19 09:37 Dose: 25 mg Documented by: Senna/Docusate Sodium (Senna Plus) 2 each PO BID PRN PRN Reason: CONSTIPATION Last Admin: 05/17/19 09:13 Dose: 2 each Documented by: Tamsulosin HCl (Flomax) 0.4 mg PO DAILY [facility] Last Admin: 05/17/19 09:11 Dose: 0.4 mg Documented by: Zinc Oxide (Desitin) 10 gm TOP ASDIR PRN PRN Reason: RASH AMI Plan - Labs Result Diagrams: 05/17/19 06:27 05/17/19 06:27
--- NOTE | 2019-05-17 16:41 | Physical Therapy Tx Note ---
Physical Therapy Tx Note - Treatment Note Tolerated: Good Total Time Spent With Patient: 20 Physical Therapy Tx Note: Detail (The patient was in bed when PT arrived and stated her lower back pain was decreased. IFC was applied to patient's lower back x 20 minutes 80/150 bps. The patient asked to go to the bathroom following treatment and completed sidelying to sit independently with less guarding noted. The patient ambulated to bathroom 7.5 feet x 1 with assist for IV only. Patient continued to ambulate with gaurded movement but less then initially. Patient reported IFC felt good. Will see patient for ambulation tomorrow am and continue IFC as needed for pain reduction as needed.) Physical Therapy Problem List: Detail (1) Lower back and R LE pain. 2) Impaired ambulation (less then household distances) due to lower back pain. 3) Decreased ability to complete functional mobility and ADL's due to lower back pain.) Physical Therapy Goals: 1) The patient will be independent with ambulation household distances with 4 wheeled walker ( 20 to 25 feet). 2) The patient will be ambulatory on stairs with use of railing with supervision of 1 for safety. 3) The patient will complete bed mobility and transfers at a functional speed with less guarded movement. Physical Therapy Plan: PT 1 time a day for gait training on levels and stairs, modalities to decrease pain and gentle core stabilization exercises to improve lower back stability and lower back stretching exercises to reduce muscle spasms.
[2019-05-17] MEDS: ATORVASTATIN 20 MG TABLET PO SCH (21:25)
[2019-05-17] MEDS: GABAPENTIN 300 MG CAPSULE PO SCH (21:25)
[2019-05-17] MEDS: LISINOPRIL 10 MG TABLET PO SCH (21:25)
[2019-05-18] MEDS: 0.9 % SODIUM CHLORIDE 1000ML 1,000 ML IV SCH ×2 (04:39→21:49)
[2019-05-18] MEDS: HYDROCODONE/APAP 7.5/325MG TABLET PO PRN (04:40)
[2019-05-18] MEDS: DIAZEPAM 5 MG TABLET PO PRN ×2 (04:42→21:59)
[2019-05-18] MEDS: MORPHINE SULFATE 10MG/1ML **1ML VIAL IVP PRN ×2 (06:41→10:53)
[2019-05-18] MEDS: METHYLPREDNISOLONE PF 125MG/VIAL IVP SCH (10:54)
[2019-05-18] MEDS: CEFTRIAXONE 1GM/50ML BAG 1 GM/50 ML BAG IVPB SCH ×2 (10:56→21:52)
[2019-05-18] MEDS: SULFASALAZINE 500 MG PO SCH ×2 (10:57→21:54)
[2019-05-18] MEDS: GABAPENTIN 300 MG CAPSULE PO SCH ×2 (10:57→21:51)
[2019-05-18] MEDS: TAMSULOSIN HCL 0.4 MG CAP.ER.24H PO SCH (10:57)
[2019-05-18] MEDS: ENOXAPARIN 40 MG/0.4 ML SYR SQ SCH (10:57)
[2019-05-18] MEDS: HYDROCHLOROTHIAZIDE 25 MG TABLET PO SCH (10:57)
--- NOTE | 2019-05-18 11:22 | Physician Progress Note ---
Subjective - Date Date of Physician Progress Note: 05/18/19 - Subjective Subjective Comment: 05/18/19 1045 74 y.o. F admitted for intractable back pain with pain and weakness in right leg. Has a significant hx of trauma to the sacral area in the past as well as hx of hemilaminectomy several years ago. Reports having had 6 Lumbar Punctures when in her 30s as well. Has had tolerable pain over the past several years without the use of routine pain medication. Reports that pain started approximately 4 weeks ago. Has been seen by PCP x 2 and was given [place] for pain, which was ineffective. Had an MRI and has an appointment pending with Dr. Gonzalez (pain management) on 05/20/19. Today, pain is 6/10. Feels increased pain when ambulating and right foot is put flat on the floor. Weakness present in right leg for which pt states she normally has but is worse than normal. Has not felt any relief from Gabapentin. dose increase. Does not feel any relief from [place]. Reports that the only medication that has given relief without making nauseated is the Dilaudid she received in the ER. States that Morphine as needed is working moderately well. Has been participating with PT/OT. Trial of brandon removal on 05/17/19 unsuccessful and brandon replaced at approximately 0700 on 05/18/19 d/t retention. Nursing staff reports output of 1200 when the brandon was placed. Pt reports that staff thought that Dilaudid was associated with urinary retention however pt states that she had been "voiding very little" prior to the Dilaudid dose in the ED. Reports that she does not normally have UTI's or problems with retention. Location: Right, Lower extremity, Back Severity scale (1-10): 6 Improves with: Medication Worsens with: Movement Objective - Multidiciplinary Team Multidiciplinary Team: Nursing, OT, PT - Vital Signs Vital Signs: Vital Signs - Last 24 Hrs Temp Pulse Resp BP Pulse Ox 05/18/19 09:00 18 05/18/19 07:14 97.8 F 97 H 19 144/66 98 05/18/19 00:00 97.9 F 103 H 18 142/49 94 L 05/17/19 20:13 18 05/17/19 16:55 97.4 F L 106 H 18 140/54 99 - General General Appearance: Alert, Oriented x3, Cooperative, No acute distress Limitations: No limitations - Head Head exam: Atraumatic, Normocephalic, Normal inspection Head exam detail: negative: Abrasion, Contusion, Ivey's sign, General tenderness, Hematoma, Laceration - Eye Eye exam: Normal appearance. negative: Conjunctival injection, Periorbital swelling, Periorbital tenderness, Scleral icterus - ENT ENT exam: Normal exam, Mucous membranes moist Ear exam: Normal external inspection. negative: Auricular hematoma, Auricular trauma Nasal Exam: negative: Active bleeding, Discharge, Dried blood, Foreign body Mouth exam: negative: Drooling, Laceration, Muffled voice, Tongue elevation - Neck Neck exam: Normal inspection. negative: Meningismus, Tenderness - Respiratory Respiratory exam: negative: Accessory muscle use, Rales, Respiratory distress, Rhonchi, Stridor - Cardiovascular Cardiovascular Exam: Normal rhythm, Normal heart sounds, Tachycardia Peripheral Pulses: 2+: Radial (R), Radial (L), Dorsalis Pedis (R), Dorsalis Pedis (L) - GI/Abdominal GI/Abdominal exam: Soft, Normal bowel sounds. negative: Rebound, Rigid, Tenderness - Rectal Rectal exam: Deferred - exam: Deferred - Extremities Extremities exam: Normal inspection. negative: Pedal edema, Tenderness - Back Back exam: Reports: Paraspinal tenderness - Neurological Neurological exam: Abnormal gait (due to pain, right-leg weakness noted), Alert, Oriented X3, Other (LLE strength > RLE strength, extreme difficulty lifting RLE off of the bed) - Psychiatric Psychiatric exam: Anxious - Skin Skin exam: Dry, Normal color, Warm. negative: Abrasion Type of lesion: negative: abrasion Assessment and Plan - Assessment and Plan (1) Intractable low back pain Current Visit: Yes Status: Acute Base Code: M54.5 - LOW BACK PAIN Comment: 05/18/19: - MRI 05/01/19: surgical hemilaminectomy changes at L5-S1, S1 nerve root signal chages due to surgical scarring vs posterior displacement of nerve root secondary to disck bulging or protrusion, disk bulging at L4-L5, advanced facet arthropathy, no lumbar spinal stenosis, multilevel neural foraminal narrowing - Valium 5mg PO q8h prn - D/C [place] 7.5/325 q8h prn (MME 21.5) - Trial Percocet 5/325mg q. 8 hours PRN (MME 22.5) - Solumedrol 125mg IVP in ED, 60mg daily continued - Appt with Dr. Gonzalez scheduled - PT/OT: weakness with ambulation, right leg weakness. Recommend continued hospitalization for additional PT/OT - Consider Swing Bed Program or Sub-Acute rehab for continued PT/OT (2) Urinary retention Current Visit: Yes Status: Acute Base Code: R33.9 - RETENTION OF URINE, U NSPECIFIED Comment: 05/18/19: - Urinary retention due to UTI vs opioid use vs neuro changes due to disc bulging - Trial of brandon removal on 05/17/19 unsuccessful, brandon replaced on 05/18/19 with output of 1200ml with brandon insertion - Continue brandon catheter and consult Urology outpatient - Continue Flomax 0.4mg daily - Brandon removed, restart bladder scans q4h. Able to void 180ml with <50mL post- void residual. (3) Urinary tract infection Current Visit: Yes Status: Acute Base Code: N39.0 - URINARY TRACT INFECTION, SITE NOT SPECIFIED Comment: 05/18/19: - UA: large leuk, 3-5 WBC - Rocephin 1gm IVP q12h - IV fluids NS 0.9% @ 75ml/hr - Encourage PO fluids - Afebrile, WBC 11 (4) DVT prophylaxis Current Visit: Yes Status: Acute Base Code: Z29.9 - ENCOUNTER FOR PROPHYLACTIC MEASURES, UNSPECIFIED Comment: 05/18/19: - Moderate risk due to age, hospitalization, and decreased mobility - Lovenox 40mg SQ daily (5) Full code status Current Visit: Yes Status: Acute Base Code: Z78.9 - OTHER SPECIFIED HEALTH STATUS Comment: 05/18/19: - Full code this admission Results - Labs Result Diagrams: 05/17/19 06:27 05/17/19 06:27 Labs Last 24 Hours: Laboratory Results - last 24 hr 05/17/19 06:27 Chloride 104 Anion Gap 10.0 DVT/PE Assessment - Risk for VTE Risk for VTE: No Risk Level: Moderate Risk Assessment Date: 05/16/19 Risk Assessment Time: 12:16 VTE Orders Placed or Will Be Placed: Yes - Active Medicaitons Current Medications: Current Medications Hydrocodone Bitart/Acetaminophen ([place] 7.5mg/325mg) 1 each PO Q8HR PRN PRN Reason: PAIN - MILD TO MODERATE (1-7) Last Admin: 05/18/19 04:40 Dose: 1 each Documented by: Albuterol Sulfate (Ventolin Hfa) 2 puff INH RESP.Q4H PRN PRN Reason: WHEEZING Atorvastatin Calcium (Lipitor) 20 mg PO QHS [facility] Last Admin: 05/17/19 21:25 Dose: 20 mg Documented by: Diazepam (Valium) 5 mg PO Q8H PRN PRN Reason: MUSCLE SPASMS Last Admin: 05/18/19 04:42 Dose: 5 mg Documented by: Enoxaparin Sodium (Lovenox) 40 mg SQ DAILY [facility] Last Admin: 05/18/19 10:57 Dose: 40 mg Documented by: Gabapentin (Neurontin) 300 mg PO BID [facility] Last Admin: 05/18/19 10:57 Dose: 300 mg Documented by: Hydrochlorothiazide (Hctz 25mg) 25 mg PO DAILY [facility] Last Admin: 05/18/19 10:57 Dose: 25 mg Documented by: Sodium Chloride () 1,000 mls @ 75 mls/hr IV .[id number] [facility] Last Admin: 05/18/19 04:39 Dose: 75 mls/hr Documented by: CEFTRIAXONE 1GM/50ML BAG (Ceftriaxone 1 Gm-D5w Bag) 1 gm in 50 mls @ 100 mls/hr IVPB Q12HR [facility] Last Admin: 05/18/19 10:56 Dose: 100 mls/hr Documented by: Lisinopril (Zestril) 10 mg PO QHS [facility] Last Admin: 05/17/19 21:25 Dose: 10 mg Documented by: Magnesium Hydroxide (Milk Of Magnesium) 30 ml PO DAILY PRN PRN Reason: INDIGESTION Last Admin: 05/17/19 09:51 Dose: 30 ml Documented by: Methylprednisolone Sodium Succinate (Solu-Medrol) 60 mg IVP DAILY [facility] Last Admin: 05/18/19 10:54 Dose: 60 mg Documented by: Morphine Sulfate (Morphine Sulfate) 4 mg IVP Q4H PRN PRN Reason: FOR MODERATE TO SEVERE PAIN Last Admin: 05/18/19 10:53 Dose: 4 mg Documented by: Patient Own Med: Sulfasalazine 500 Mg Tablet 1 each PO BID [facility] Last Admin: 05/18/19 10:57 Dose: 1 each Documented by: Promethazine HCl (Phenergan) 25 mg PO Q6H PRN PRN Reason: NAUSEA Last Admin: 05/16/19 09:37 Dose: 25 mg Documented by: Senna/Docusate Sodium (Senna Plus) 2 each PO BID PRN PRN Reason: CONSTIPATION Last Admin: 05/17/19 09:13 Dose: 2 each Documented by: Tamsulosin HCl (Flomax) 0.4 mg PO DAILY [facility] Last Admin: 05/18/19 10:57 Dose: 0.4 mg Documented by: Zinc Oxide (Desitin) 10 gm TOP ASDIR PRN PRN Reason: RASH AMI Plan - Labs Result Diagrams: 05/17/19 06:27 05/17/19 06:27
--- NOTE | 2019-05-18 11:24 | Occupational Therapy Tx Note ---
Occupational Therapy Tx Note - Treatment Note Tolerated: Good Total Time Spent With Patient: 44 (3 ADL) Occupational Therapy Treatment Note: Detail (S: Pt supine in bed upon thrapist arrival, hoping for a shower. 8/ low back pain, not time for pain meds yet per Pt. O: Supine > EOB with increased time and effort using good log roll technique. Sit to stand and functional mobility from bedside to shower with 4WW with increased time, verbal instructions to lock brakes before sit/stand and when stopping to let pain subside, deep breathing for pain control, notable shoulder hiking throughout d/t pain, however decreased since yesterday's eval. Pt showers in standing position d/t increased pain when sitting. Pt demos ability to wash total body independently, including feet, with alternating uni support on grab bar. No LOB or safety concerns throughout, however painful throughout. Pt dons gown at EOB but declines LB dressing at this time d/t pain and not wanting to remove briefs when urgently needing to use toilet. OT educated Pt on adaptive techniques and AE for LB dressing, including sock aide, fiberglass laminator, long-handled shoe horn, and long-handled sponge for showering. Pt reports she knows how to use these AE and has all equipment besides long-handled sponge. A: Pt demos increased activity tolerance/ functional endurance and increased independence with ADLs this date. Pt will benefit from further IP OT to ensure ability to use AE for LB dressing (also demo use of long-handled sponge), and safe use of 4WW.) Occupational Therapy Problem List: Detail (1. Decreased independence with total body dressing. 2. Decreased independence with showering. 3. Decreased functional endurance needed for safe and independent self-cares. 4. Decreased knowledge of safe 4WW use.) Occupational Therapy Goals: 1. Pt will be independent with total body dressing using AE as needed. 2. Pt will be independent with showering using AE as needed. 3. Pt will demo increased functional endurance to allow for safe and independent self-cares and functional TFs. 4. Pt will demo safe 4WW use. Prognosis: Good Occupational Therapy Plan: Pt will benefit from skilled IP OT to increase ability to participate in ADLs and increase safety and independence to facilitate DC home. OT 1-3x/wk to address OT goals.
--- NOTE | 2019-05-18 12:10 | Physical Therapy Tx Note ---
Physical Therapy Tx Note - Treatment Note Tolerated: Good Total Time Spent With Patient: 20 Physical Therapy Tx Note: Detail (The patient was in bed when PT arrived. The patient was independent with supine to sit with head of bed raised. The patient was independent with sit to and from stand transfer. The patient ambulated with 4 wheeled walker a distance of 75 feet x 1 with 2 standing rest periods. Patient then stood to sink and brushed her teeth. The patient returned to bed and was independent with sit to supine. The patient's movements were still gaurded but less then initially. Will attempt stair climbing this pm.) Physical Therapy Problem List: Detail (1) Lower back and R LE pain. 2) Impaired ambulation (less then household distances) due to lower back pain. 3) Decreased ability to complete functional mobility and ADL's due to lower back pain.) Physical Therapy Goals: 1) The patient will be independent with ambulation household distances with 4 wheeled walker ( 20 to 25 feet). Goal Met. 2) The patient will be ambulatory on stairs with use of railing with supervision of 1 for safety. 3) The patient will complete bed mobility and transfers at a functional speed with less guarded movement. Goal Met Physical Therapy Plan: PT 1 time a day for gait training on levels and stairs, modalities to decrease pain and gentle core stabilization exercises to improve lower back stability and lower back stretching exercises to reduce muscle spasms.
[2019-05-18] MEDS: OXYCODONE HCL/APAP 5MG/325MG TABLET PO PRN ×2 (13:02→22:00)
--- NOTE | 2019-05-18 16:07 | Physical Therapy Tx Note ---
Physical Therapy Tx Note - Treatment Note Total Time Spent With Patient: 35 Physical Therapy Tx Note: Detail (The patient was in bed when PT arrived and reported her back and R LE pain were at a level 4 using 0-10 pain scale. The patient ambulated to bathroom independently/ with supervision for safety only. The patient ambulated 75 feet x 1 with 4 wheeled walker with supervision for safety only. The patient ambulated on 3 steps with CG of 1 using one railing and hand hold of PT descending stairs and one railing with two hands on railing ascending stairs. IFC was placed on patient for pain control x 20 minutes 50/180 BPS to low back region. The patient had no new complaints following treatment.) Physical Therapy Problem List: Detail (1) Lower back and R LE pain. 2) Impaired ambulation (less then household distances) due to lower back pain. 3) Decreased ability to complete functional mobility and ADL's due to lower back pain.) Physical Therapy Goals: 1) The patient will be independent with ambulation household distances with 4 wheeled walker ( 20 to 25 feet). Goal Met. 2) The patient will be ambulatory on stairs with use of railing with supervision of 1 for safety. 3) The patient will complete bed mobility and transfers at a f unctional speed with less guarded movement. Goal Met Physical Therapy Plan: PT 1 time a day for gait training on levels and stairs, modalities to decrease pain and gentle core stabilization exercises to improve lower back stability and lower back stretching exercises to reduce muscle spasms.
[2019-05-18] MEDS: ATORVASTATIN 20 MG TABLET PO SCH (21:51)
[2019-05-18] MEDS: LISINOPRIL 10 MG TABLET PO SCH (21:51)
[2019-05-19] MEDS: DIAZEPAM 5 MG TABLET PO PRN (06:44)
[2019-05-19] MEDS: OXYCODONE HCL/APAP 5MG/325MG TABLET PO PRN ×2 (06:44→16:48)
--- NOTE | 2019-05-19 09:10 | Discharge Summary ---
Providers Discharge Summary Date: 05/19/19 Date of admission: 05/16/19 18:20 Attending physician: ALECIA SMYTH Primary care physician: Ayah Emery N.P. Physical Exam - Vital Signs Vital Signs: Vital Signs - Last 24 Hrs Temp Pulse Resp BP Pulse Ox 05/19/19 00:00 98.2 F 93 H 18 144/55 95 05/18/19 21:00 18 05/18/19 18:45 100 H 18 110/67 95 - General General Appearance: Alert, Oriented x3, Cooperative, No acute distress Limitations: No limitations - Head Head exam: Atraumatic, Normocephalic, Normal inspection Head exam detail: negative: Abrasion, Contusion, Ivey's sign, General tenderness, Hematoma, Laceration - Eye Eye exam: Normal appearance. negative: Conjunctival injection, Periorbital swelling, Periorbital tenderness, Scleral icterus - ENT ENT exam: Normal exam, Mucous membranes moist Ear exam: Normal external inspection. negative: Auricular hematoma, Auricular trauma Nasal Exam: negative: Active bleeding, Discharge, Dried blood, Foreign body Mouth exam: negative: Drooling, Laceration, Muffled voice, Tongue elevation - Neck Neck exam: Normal inspection. negative: Meningismus, Tenderness - Respiratory Respiratory exam: negative: Accessory muscle use, Rales, Respiratory distress, Rhonchi, Stridor - Cardiovascular Cardiovascular Exam: Normal rhythm, Normal heart sounds Peripheral Pulses: 2+: Radial (R), Radial (L), Dorsalis Pedis (R), Dorsalis Pedis (L) - GI/Abdominal GI/Abdominal exam: Soft, Normal bowel sounds. negative: Rebound, Rigid, Tenderness - Rectal Rectal exam: Deferred - exam: Deferred - Extremities Extremities exam: Normal inspection. negative: Pedal edema, Tenderness - Back Back exam: Reports: Paraspinal tenderness - Neurological Neurological exam: Abnormal gait (due to pain, right-leg weakness noted), Alert, Oriented X3, Other (LLE strength > RLE strength, extreme difficulty lifting RLE off of the bed) - Skin Skin exam: Dry, Normal color, Warm. negative: Abrasion Type of lesion: negative: abrasion Hospitalization - Hospitalization Admission Diagnosis: Intractable low back pain. History degenerative disc disease - Problem List/Discharge Diagnosis (1) Intractable low back pain Status: Acute Base Code: M54.5 - LOW BACK PAIN Comment: 05/19/19: - MRI 05/01/19: surgical hemilaminectomy changes at L5-S1, S1 nerve root signal chages due to surgical scarring vs posterior displacement of nerve root secondary to disck bulging or protrusion, disk bulging at L4-L5, advanced facet arthropathy, no lumbar spinal stenosis, multilevel neural foraminal narrowing - Valium 5mg PO q8h prn - Continue Percocet 5/325mg q. 8 hours PRN (MME 22.5) - Stop Solumedrol - Appt with Dr. Gonzalez scheduled - PT/OT: weakness with ambulation, right leg weakness. Recommend continued hospitalization for additional PT/OT - Discharge to Swing Bed Program or Sub-Acute rehab for continued PT/OT and pain management (2) Urinary retention Status: Acute Base Code: R33.9 - RETENTION OF URINE, UNSPECIFIED Comment: 05/19/19: - Urinary retention due to UTI vs opioid use vs neuro changes due to disc bulging - Trial of brandon removal on 05/17/19 unsuccessful, brandon replaced on 05/18/19 with output of 1200ml with brandon insertion - Continue brandon catheter - Urology consult placed - appointment on 05/25/[address] Tapia at [facility] - Stop Flomax 0.4mg daily (3) Urinary tract infection Status: Acute Base Code: N39.0 - URINARY TRACT INFECTION, SITE NOT SPECIFIED Comment: 05/19/19: - UA: large leuk, 3-5 WBC, C&S pending - D/C Rocephin. - Start Cefdinir PO x 6 more doses - Encourage PO fluids (4) DVT prophylaxis Status: Acute Base Code: Z29.9 - ENCOUNTER FOR PROPHYLACTIC MEASURES, UNSPECIFIED Comment: 05/19/19: - Moderate risk due to age, hospitalization, and decreased mobility - D/C Lovenox - Encourage ambulation with nursing staff and PT/OT (5) Full code status Status: Acute Base Code: Z78.9 - OTHER SPECIFIED HEALTH STATUS Comment: 05/19/19: - Full code this admission - Hospitalization Course Disposition: Moved to Swing Bed Hospital Course: 74 year old female patient presented to ED for intractable worsening of her chronic low-back pain. Patient has noted progressive worsening of symptoms over the past 2-4 weeks. She has been seen by her PCP twice, and had an MRI completed 05/01/19, which indicated prior hemilaminectomy changes at L5-S1, post- surgical scarring vs posterior displacement of S1 nerve root secondary to disk bulge and/or small right paracentral disk protrusion, mild disk bulging at L4-L5 without central canal stenosis, advanced facet arthropathy, and multilevel neural foraminal narrowing. Patient states she was given Prednisone and [place] 5/325 from PCP with only minimal relief from the Prednisone, and no relief from [place]. Also states she has been referred to Dr. Gonzalez for pain management and is scheduled to see him this coming . Denies any new injury or trauma. Patient noted Friday morning sudden increase in pain level and was unable to get out of bed due to the pain. Reports low-back pain that radiates down her right buttock and right leg. Patient states the pain continued to progress, leading to her presenting to ED. Patient reports an active lifestyle at baseline, walking 4 miles per day and being independent with ADLs. Past medical history includes CKD stage 3, HTN, elevated lipids, cholecystectomy, CAD, RA, and previous hemilaminectomy at L5-S1. PCP: Ayah Caceres NP/Dr. Smyth Psychiatry Instructor: Dr. Luke ED Course: Solumedrol 125mg Valium 5mg Dilaudid 0.5mg 05/19/19 1200 Pt sitting up at bedside, eating lunch. Daughter at bedside. Pt reported pain improvement with change of pain medication from [place] 7.5mg TID PRN to Percocet 5/325mg TID PRN. During hospital stay, was also started on Gabapentin and given Morphine for breakthrough pain. Worked with PT/OT which also helped reduce pain. Has appointment set up with Dr. Gonzalez on 05/20/19 for possible pain management. Pending this appointment, may consider referral to Neurosurgery. During hospitalization, pt had urinary retention with an known cause. Brandon removal trial unsuccessful on 05/17/19 and was replaced on 05/18/19. Urology Consult placed to evaluate and appointment set for 05/25/19. Pt's daughter and son included on care planning, per pt request. Abnormal Labs: Abnormal Lab Results 08/11/19 08/11/19 08/11/19 Range/Units 11:14 12:29 12:29 WBC 14.5 H (4.2-12.2) K/uL RBC (3.80-5.40) M/uL Hgb (11.6-16.0) gm/dl Hct (35.0-47.0) % Neutrophils % 83.0 H (47-80) % Lymphocytes 10.0 L (16-45) % Sodium 133 L (136-145) mmol/L Potassium (3.4-4.5) mmol/L Chloride 95 L (98-107) mmol/L Creatinine (0.5-0.9) mg/dL Random Glucose 175 H (74-109) mg/dL Ur Leukocyte Esterase Large H (NEGATIVE) 05/17/19 05/17/19 Range/Units 06:27 06:27 WBC (4.2-12.2) K/uL RBC 3.51 L (3.80-5.40) M/uL Hgb 10.8 L (11.6-16.0) gm/dl Hct 33.3 L (35.0-47.0) % Neutrophils % (47-80) % Lymphocytes (16-45) % Sodium (136-145) mmol/L Potassium 4.6 H (3.4-4.5) mmol/L Chloride (98-107) mmol/L Creatinine 1.0 H (0.5-0.9) mg/dL Random Glucose 146 H (74-109) mg/dL Ur Leukocyte Esterase (NEGATIVE) Condition at Discharge: (2) Stable Discharge Medications - Discharge Medications Home Medications: Ambulatory Orders Melatonin 3 mg PO QHS tab 11/25/17 [Last Taken Unknown] Mv,Calcium,Min/Iron/Folic/Vitk [Multi For Her Tablet] 1 each PO DAILY tab 11/25/17 [Last Taken Unknown] Acetaminophen [Tylenol 325Mg] 650 mg PO QHS 03/16/19 [Last Taken Unknown] Atorvastatin Calcium 20 mg PO DAILY 05/15/19 [Last Taken Unknown] Discharge Plan - Discharge Instructions Activity at Discharge: As Per Physical Therapy, Increase Activity as Tolerated Diet at Discharge: Regular Diet Quality Measures - Quality Measures Quality Measures: Advance Directives, Documentation of Current Medications in Medical Record, Elder Maltreatment Screen and Follow-Up Plan, Screening for High Blood Pressure and F/U Documented - Current Medications Quality Measure: Measure #130: Documentation of Current Medications Documentation of Current Medications: <Current Medications Documented/Reviewed> [G0360] - Blood Pressure Screening Quality Measure: Screening for High Blood Pressure and Follow-Up Documented Does Patient Have Any of the Following: Active Dx of HTN Blood Pressure Classification: Pre-Hypertensive BP Reading Systolic Measurement: 135 Diastolic Measurement: 85 Screening for High Blood Pressure: Patient Exclusion, Hx of HTN [G9744] - Advance Directives Quality Measure: Measure #47: Care Plan Advance Directives Established: No Advance Directives Information Provided To Patient: Already Provided Advance Directives on File: No Living Will: No Power of Vice Chair: No Advance Care Planning: <Care Plan/Decision Maker Documented; Discussed & Documented> [[id number]] - Elder Abuse Suspicion Index Screening: Elder Abuse Suspicion Index Screening Rely on people for bathing, dressing, shopping, banking, etc: No Prevented from getting food, clothes, medication, etc: No Made to feel shamed or threatened by someone: No Forced to sign papers or use money against will: No Feel afraid, touched in ways not wanted or hurt physically: No Poor eye contact, withdrawn, malnourished, cuts or bruises: No Screening Result: Negative result EASI Reference Information: Neto DENNISON, Erin C, Mindy D, Neal M.Development and validation of a tool to assist physicians identification of elder abuse: The Elder Abuse Suspicion Index (EASI ). Journal of Elder Abuse and Neglect, 2008; 20 (3): 276-300. - Elder Maltreatment Screen Quality Measures: Elder Maltreatment Screen and Follow-Up Plan Elder Maltreatment Screen: <Negative, No Follow-Up Plan Required> [G8734]
[2019-05-19] MEDS: MORPHINE SULFATE 10MG/1ML **1ML VIAL IVP PRN (09:25)
[2019-05-19] MEDS: METHYLPREDNISOLONE PF 125MG/VIAL IVP SCH (10:59)
[2019-05-19] MEDS: TAMSULOSIN HCL 0.4 MG CAP.ER.24H PO SCH (11:00)
[2019-05-19] MEDS: HYDROCHLOROTHIAZIDE 25 MG TABLET PO SCH (11:00)
[2019-05-19] MEDS: CEFTRIAXONE 1GM/50ML BAG 1 GM/50 ML BAG IVPB SCH (11:00)
[2019-05-19] MEDS: GABAPENTIN 300 MG CAPSULE PO SCH (11:00)
[2019-05-19] MEDS: ENOXAPARIN 40 MG/0.4 ML SYR SQ SCH (11:01)
[2019-05-19] MEDS: SULFASALAZINE 500 MG PO SCH (11:04)
[2019-05-19] MEDS: 0.9 % SODIUM CHLORIDE 1000ML 1,000 ML IV SCH (16:38)
== END 2019-05-19 17:38 | disposition swing bed (61) | DRG 551 ==
LOC: ER 21:23 → MEDSURG 23:03 → OBSVTOIN 05-16 18:20
PROVIDERS: ADMIT Internal Medicine; ATTEND Internal Medicine
DX: M54.5 Low back pain (principal); K85.90 Acute pancreatitis without necrosis or infection, unspecified; N39.0 Urinary tract infection, site not specified; R33.9 Retention of urine, unspecified; Z87.39 Personal history of other diseases of the musculoskeletal system and connective tissue; I10 Essential (primary) hypertension; N18.3 Chronic kidney disease, stage 3 (moderate); E11.9 Type 2 diabetes mellitus without complications; I25.10 Atherosclerotic heart disease of native coronary artery without angina pectoris; M06.9 Rheumatoid arthritis, unspecified; F17.210 Nicotine dependence, cigarettes, uncomplicated; Z98.61 Coronary angioplasty status; J45.909 Unspecified asthma, uncomplicated; G62.9 Polyneuropathy, unspecified; F43.10 Post-traumatic stress disorder, unspecified; Z90.49 Acquired absence of other specified parts of digestive tract; Z86.61 Personal history of infections of the central nervous system
CPT/HCPCS: 80048; 80053; 81001; 85025; 85027; 96374; 96375; 97014; 99223; 99233; 99239; 99285; J0696; J1650; J2270; J2930; J3360; J7030; Q0170

== ENCOUNTER 2019-05-19 09:46 | Inpatient (IN) | payer MEDICARE ==
--- NOTE | 2019-05-19 11:51 | Rehab Evaluation ---
Patient Information - Patient Information Diagnosis: Intractible back pain, urinary retention Ordered Treatment: OT Evaluate and Treat Status: Initial Evaluation Surgery: No Past Med/Bautista Hx Detail: Detail (hemilaminectomy L5-S1, buldging disk L4-L5, advanced facet arthropathy, multilevel neural foraminal narrowing) Past Medical/Surgical Hx: PAST MEDICAL/SURGICAL HISTORY Past Surgical History andrew back abdominal sx to remove ectopic cardiac cath PMH - Respiratory Hx Respiratory Disorders No Hx Asthma Yes PMH - Cardiovascular Hx Cardiovascular Disorders Yes Hx Cardiac Catheterization Yes Hx Hypertension Yes Comment: "small vessel disease" PMH - Neuro Hx Neurological Disorders No Hx Neuropathy Yes PMH - GI Hx Gastrointestinal Disorders No Hx Pancreatitis Yes Comment: cholycyctectomy PMH - Hx Genitourinary Disorders No Hx Kidney Stones No: stage 2/3 CKD Hx Renal Disease Yes Hx Urinary Tract Infection Yes: many years ago PMH - Endocrine Hx Endocrine Disorders Yes Hx Diabetes Yes Hx Thyroid Disease No PMH - Musculoskeletal Hx Musculoskeletal Disorders No Hx Arthritis Yes Hx Back Injury Yes: meningitis, sx at L4 - L5 PMH - Psych Hx Psychiatric Problems No Hx Depression Yes Comment: PTSD after PMH - Hematology/Oncology Hx Hematology/Oncology No Disorders Premorbid Status: Detail (Prior to intractable back pain, Pt was independent with all I/ADLs and functional mobility and driving. She uses a self-propelled vaccuum.) Social History: Detail (Pt lives with her son who works full time staff interpreter. The farmhouse has 3 steps at the entrance and bilateral hand-rails. There is also a back entrance with 3 steps/slabs with a left side hand-rail. Her bedroom and bat hroom are on the main level. The bathroom is equipped with a tub/shower with a non-slip surface, a grab bar inside and outside the shower, and a standard toilet with a sink on her right side for support in standing. She purchased a 4WW one week prior to admit that she has been using due to her back pain and her son was assisting with transfers the week prior to admit.) Precautions: [place], Fall - Time With Patient Total Time Spent With Patient (Min): 39 (1 eval, 1 ADL) Treatment Procedures: Detail (OT eval: low complexity) Subjective Information - Subjective Information Per Patient (Ok to see per YESSICA Abbott, Pt agreeable to OT eval and Tx.) Objective Data - Pain Pain Present: Yes Pain Scale Used: Numeric (1 - 10) (8/10 initially, 2/10 post morphine) - Mental Status Patient Orientation: Oriented x3 - Visual Perception Appears within normal limits for therapeutic activities - ROM Within normal limits - Strength/Tone Other (4/5 B UEs d/t arthritis, R more painful than left) - Coordination Appears within normal limits for therapeutic activities - Bed Mobility Independent (good use of log roll to prevent back pain) - Transfers Independent (Sit to/from stand to 4WW with good balance and safe use of walker.) - Balance Balance Sitting: Fair Balance Standing: Fair (Fair-, with support on 4WW) - Sensation Intact - Gait Detail (Functional mobility household distances with 4WW. Educated Pt on safe 4WW use - use of brakes and method to safely sit on walker, Pt demos good follow thru after practice x2. SpO2 maintained >92% throughout, HR 90 with activity. Pt no longer hiking shoulders or using deep breathing for pain mgmt. - Pt appe ars calm but safely cautious throughout mobility.) - ADL's/IADL's Detail (Pt demos ability to don/doff pants and socks using sheet rock nailer, sock aide, and long-handled shoe horn. OT educated Pt on technique to use AE to decrease back pain, Pt demos understanding. Pt demos simulated showering with alternating uni support on grab bar, reports she has a long-handled loofa to decrease reaching to feet to decrease back pain. OT educated Pt on benefits of shower chair and riser for toilet. Pt reports some concerns with kitchen safety d/t back pain.) - Special Tests No Therapy Assessment - Therapy Assessment Detail (Pt tolerating session well with minimal OT needs as back pain is being better managed per Pt report. Prior to intractable back pain, Pt was independent with all ADLs and functional mobility, Pt currently near functional baseline, slow and cautious d/t back pain. Pt reports she is now able ambulate household distances as she was not when first admitted to [facility]. She also reports her daughter can come from [place] to assist as needed. Pt will likely require minimal OT visits to return to [facility] pending status of back pain.) Patient Education - Patient Education Teaching Topic: Equipment Use, Precautions (To minimize back pain) Response: Return Demonstration, Reinforcement Needed, Verbalize Understanding Teaching Method: Discussion, Demonstration Teaching Recipient: Patient Barriers To Learning: None Problem List - Problem List Occupational Therapy Problem List: Detail (1. Decreased knowledge of postures and body mechanics to prevent back pain. 2. Decreased knowledge of managing kitchen tasks with good body mechanics from walker level.) Goals - Goals Occupational Therapy Goals: 1. Pt will demo safety and independence with postures and body mechanics to prevent back pain throughout Tx. 2. Pt will demo managing kitchen tasks from walker level while using good body mechanics. Prognosis - Prognosis Good Plan - Plan Occupational Therapy Plan: Pt will benefit from skilled IP OT while at [facility] to address goals in order to prevent further back pain and increase safety and independence prior to return home at [facility].
--- NOTE | 2019-05-19 15:38 | Rehab Evaluation ---
Patient Information - Patient Information Diagnosis: Intractible back pain, urinary retention Ordered Treatment: PT Evaluate and Treat Surgery: No Past Med/Bautista Hx Detail: Detail (hemilaminectomy L5-S1, buldging disk L4-L5, advanced facet arthropathy, multilevel neural foraminal narrowing) Past Medical/Surgical Hx: PAST MEDICAL/SURGICAL HISTORY Past Surgical History andrew back abdominal sx to remove ectopic cardiac cath PMH - Respiratory Hx Respiratory Disorders No Hx Asthma Yes PMH - Cardiovascular Hx Cardiovascular Disorders Yes Hx Cardiac Catheterization Yes Hx Hypertension Yes Comment: "small vessel disease" PMH - Neuro Hx Neurological Disorders No Hx Neuropathy Yes PMH - GI Hx Gastrointestinal Disorders No Hx Pancreatitis Yes Comment: cholycyctectomy PMH - Hx Genitourinary Disorders No Hx Kidney Stones No: stage 2/3 CKD Hx Renal Disease Yes Hx Urinary Tract Infection Yes: many years ago PMH - Endocrine Hx Endocrine Disorders Yes Hx Diabetes Yes Hx Thyroid Disease No PMH - Musculoskeletal Hx Musculoskeletal Disorders No Hx Arthritis Yes Hx Back Injury Yes: meningitis, sx at L4 - L5 PMH - Psych Hx Psychiatric Problems No Hx Depression Yes Comment: PTSD after PMH - Hematology/Oncology Hx Hematology/Oncology No Disorders Premorbid Status: Detail (Prior to intractable back pain, Pt was independent with all I/ADLs and functional mobility and driving. She uses a self-propelled vaccuum.) Social History: Detail (Pt lives with her son who works burring wheel operator. The farmhouse has 3 steps at the entrance and bilateral hand-rails. There is also a back entrance with 3 steps/slabs with a left side hand-rail. Her bedroom and bathroom are on the main level. The bathroom is equipped with a tub/shower with a non-slip surface, a grab bar inside and outside the shower, and a standard toilet with a sink on her right side for support in standing. She purchased a 4WW one week prior to admit that she has been using due to her back pain and her son was assisting with transfers the week prior to admit.) Precautions: Bryce, Fall - Time With Patient Total Time Spent With Patient (Min): 25 Treatment Procedures: Detail (Initial Evaluation, low complexity) Subjective Information - Subjective Information Per Patient (The patient had complaints of lower back and R LE pain that increased with ambulation. Initially the patient's pain was level 1 then increased to level 5 after ambulating 561 feet.) Objective Data - Mental Status Patient Orientation: Oriented x3 - Visual Perception Appears within normal limits for therapeutic activities - ROM Within normal limits (LE AROM is WNL. Lumbar mobility was not tested.) - Strength/Tone Not within normal limits (The patient's L LE strength was generally 4+ to 5/5 throughout. The patient's R LE strength was in hip flexors and adductors 4-/5, hip abductors 4/5, knee flexors and extensors 4/5, ankle dorsiflexors and plantarflexors 4-/5.) - Bed Mobility Independent (The patient is independent with supine to and from sit transfer with use of L LE to lift R LE with sit to supine. The patient is independent with scooting up in bed. The patient holds trunk rigidly with minimal gaurded movements.) - Transfers Independent (Independent with sit to and from stand transfer with trunk held rigidly.) - Balance Balance Sitting: Good Balance Standing: Good - Sensation Intact - Gait Detail (The patient ambulated with 4 wheeled walker a distance of 560 feet independently with pain gradually increasing in R LE from level 1 to 5. The patient ambulates on 3 steps with use of one railing with supervision for safety only. The patient ambulates with bilateral shoulder hiking and trunk held ridgidly.) Therapy Assessment - Therapy Assessment Detail (The patient is independent with mobility with gaurded movements still present. The patient's back pain and R LE pain increase progressively with ambulation.The patient demonstrates some weakness in RLE compared to L LE.) Problem List - Problem List Physical Therapy Problem List: Detail (1) Painful ambulation with community distances 2) Decreased R LE and core strength) Occupational Therapy Problem List: Detail (1. Decreased knowledge of postures and body mechanics to prevent back pain. 2. Decreased knowledge of managing kitchen tasks with good body mechanics from walker level.) Goals - Goals Physical Therapy Goals: 1) Patient will ambulate community distances with back and R hip pain at a level 3 and lower consistently. 2) The patient will be independent with HEP of core strengthening exercises and demonstrate good understanding of proper body mechanics with all functional activities. Occupational Therapy Goals: 1. Pt will demo safety and independence with postures and body mechanics to prevent back pain throughout Tx. 2. Pt will demo managing kitchen tasks from walker level while using good body mechanics. Plan - Plan Physical Therapy Plan: PT 2-3 times a week M-F for instruction in core exercises and proper body mechanics and completion of functional activities without pain (ie: pain free ambulation) and transfer training including car transfers. Occupational Therapy Plan: Pt will benefit from skilled IP OT while at [facility] to address goals in order to prevent further back pain and increase safety and independence prior to return home at [facility].
[2019-05-19] MEDS ORDERED: ALBUTEROL HFA 8 GM INHALER INH PRN (16:25)
[2019-05-19] MEDS ORDERED: MAGNESIUM HYDROXIDE 30 ML UDC PO PRN (16:29)
[2019-05-19] MEDS ORDERED: ZINC OXIDE 28.35 GM TUBE TOP PRN (16:30)
[2019-05-19] MEDS: GABAPENTIN 300 MG CAPSULE PO SCH (21:22)
[2019-05-19] MEDS: CEFDINIR 300 MG CAPSULE PO SCH (21:23)
[2019-05-19] MEDS: LISINOPRIL 10 MG TABLET PO SCH (21:23)
[2019-05-19] MEDS: DIAZEPAM 5 MG TABLET PO PRN (21:24)
[2019-05-19] MEDS: ATORVASTATIN 20 MG TABLET PO SCH (21:26)
[2019-05-19] MEDS: PATIENT OWN MED: SULFASALAZINE 500 MG PO SCH (21:29)
[2019-05-20] MEDS: OXYCODONE HCL/APAP 5MG/325MG TABLET PO PRN ×4 (06:45→21:27)
--- NOTE | 2019-05-20 07:45 | History & Physical ---
History of Present Illness - Date Date of Service for History & Physical: 05/20/19 - History of Present Illness Admitting Diagnosis: Weakness with ambulation due to surgical hemilaminectomy and displacement of nerve root secondary to bulging disc General - Cognitive Patterns Orientation: Oriented x3 - Communication Preferred Language?: Mohawk Architectural Practice Manager Required: No Level of Education: College Preferred Method of Learning: Seeing, Doing, Reading Comprehension Ability: No Impairment Able to Read: Yes Able to Write: Yes Select best description of speech pattern: Clear Speech Ability to express ideas and wants: Understood Understanding verbal content: Understands - Psychosocial Well-Being Usual Living Arrangement: Children - Dental Status Unable to examine: Not Assessed/No Information Broken or loosely fitting full or partial dentures: Not Assessed/No Information No natural teeth or tooth fragment(s) (edentulous): Not Assessed/No Information Abnormal mouth tissue (ulcers, masses, oral lesions, etc.): Not Assessed/No Information Obvious or likely cavity or broken natural teeth: Not Assessed/No Information Inflamed or bleeding gums or loose natural teeth: Not Assessed/No Information Mouth/facial pain, discomfort or difficulty chewing: Not Assessed/No Information - Nutrition Screening Poor oral intake > 1 week: No Unplanned weight loss in specified time frame: No Nutrition Support via tube feedings or parenteral nutrition: No Pressure Ulcer: No Significantly underweight define as BMI <18.5 kg/m2: No Albumin <2.5mg/dL: No Persistent nausea/vomiting/diarrhea >3 days: No Difficulty chewing/swallowing/mouth sores: No Admitting Diagnosis: No Nutrition Risk Score: Low Risk Past Medical History - SOCIAL HISTORY Smoking Status: Light tobacco smoker (<10/day) Alcohol Use: Rare - SURGICAL HISTORY Past Surgical History: andrew. back. abdominal sx to remove ectopic . cardiac cath - RESPIRATORY Hx Respiratory Disorders: No Hx Asthma: Yes - CARDIOVASCULAR Hx Cardio Disorders: Yes Hx Hypertension: Yes Comment:: "small vessel disease" - NEURO Hx Neuro Disorders: No Hx Neuropathy: Yes - GI Hx GI Disorders: No Hx Pancreatitis: Yes Comment:: cholycyctectomy - Hx Genitourinary Disorders: No Hx Kidney Stones: No (stage 2/3 CKD) Hx Renal Disease: Yes Hx UTI: Yes (many years ago) - ENDOCRINE Hx Endocrine Disorders: Yes Hx Diabetes: Yes - MUSCULOSKELETAL Hx Musculoskeletal Disorders: No Hx Back Injury: Yes (meningitis, sx at L4 - L5) - PSYCH Hx Psych Problems: No Hx Depression: Yes Comment:: PTSD after - HEMATOLOGY/ONCOLOGY Hx Hematology/Oncology Disorders: No Family Medical History Any Significant Family History?: No Hx Anxiety: Brother/Sister Hx Diabetes: Mother Hx Heart Disease: Father, Mother *Heart Comment: Father-90& occluded carotid H&P Meds/Allergies - Allergies Allergies: Allergies Allergy/AdvReac Type Severity Reaction Status Date / Time artificial sweeteners Allergy Mild hives Uncoded 05/15/19 21:25 - Active Medications Active Medications: Current Medications Albuterol Sulfate (Ventolin Hfa) 2 puff INH Q4H PRN PRN Reason: DIFFICULTY IN BREATHING Atorvastatin Calcium (Lipitor) 10 mg PO QHS [facility] Last Admin: 05/19/19 21:26 Dose: 10 mg Documented by: Cefdinir (Cefdinir) 300 mg PO BID [facility] Stop: 05/22/19 10:01 Last Admin: 05/19/19 21:23 Dose: 300 mg Documented by: Diazepam (Valium) 5 mg PO Q8H PRN PRN Reason: MUSCLE SPASM Last Admin: 05/19/19 21:24 Dose: 5 mg Documented by: Gabapentin (Neurontin) 300 mg PO BID [facility] Last Admin: 05/19/19 21:22 Dose: 300 mg Documented by: Hydrochlorothiazide (Hctz 25mg) 25 mg PO DAILY [facility] Lisinopril (Zestril) 10 mg PO QHS [facility] Last Admin: 05/19/19 21:23 Dose: 10 mg Documented by: Magnesium Hydroxide (Milk Of Magnesium) 30 ml PO DAILY PRN PRN Reason: CONSTIPATION Oxycodone/Acetaminophen (Percocet 5-325 Mg Tablet) 1 udtab PO Q4H PRN PRN Reason: PAIN - MOD TO SEVERE (5-10) Last Admin: 05/20/19 06:45 Dose: 1 udtab Documented by: Patient Own Med: (Sulfasalazine 500 Mg) 1 each PO BID [facility] Last Admin: 05/19/19 21:29 Dose: 1 each Documented by: Zinc Oxide (Desitin) 10 gm TOP ASDIR PRN PRN Reason: RASH Physical Exam - Vital Signs Vital Signs: Vital Signs - Last 24 Hrs Temp Pulse Resp BP Pulse Ox 05/19/19 20:00 98.6 F 94 H 18 146/59 99 Discharge Potential - Discharge Needs Patient Discharge Plan Description: Return Home Community Services Needed at Discharge: Physical Therapy Plan - Swing Bed Certification Initial Certification Due: 05/19/19 14 Day Re-Cert Due: 06/02/19 44 Day Re-Cert Due: 07/02/19 74 Day Re-Cert Due: 08/01/19
--- NOTE | 2019-05-20 07:45 | Swing Bed Certification/Recert ---
Initial Certification Due: 05/19/19 14 Day Re-Cert Due: 06/02/19 44 Day Re-Cert Due: 07/02/19 74 Day Re-Cert Due: 08/01/19 CERTIFICATION CERTIFICATION OF PATIENT ADMISSION Required at time of admission. Due: 05/19/19 I certify that SNF services are required to be given on an inpatient basis because of the above named patient's need for shelter care on a continuing basis for the condition(s) for which he/she was receiving inpatient hospital services prior to his/her transfer to the SNF. The patient's current needs for skilled care includes: [] WALLY MILLER, N.P. 05/20/19
[2019-05-20 08:08] LABS: ABSOLUTE NEUTROPHIL COUNT 6.91; HEMOGLOBIN 10.6 gm/dl (11.6-16.0); MEAN CELL VOLUME 94.7 fl (81-97); MEAN CORPUSCULAR HGB CONC 33.1 g/dl (32-36); MEAN PLATELET VOLUME 9.2 fl (7.4-10.4); PLATELET COUNT 271 K/uL (130-400); RED BLOOD COUNT 3.38 M/uL (3.80-5.40); RED CELL DISTRIBUTION WIDTH 13.8 % (11.5-14.5); WHITE BLOOD COUNT W/O DIFF 11.2 K/uL (4.2-12.2)
[2019-05-20 08:16] LABS: MEAN CORPUSCULAR HEMOGLOBIN 31.3 pg (27-33)
[2019-05-20 08:27] LABS: PLATELET ESTIMATE NORMAL (NORMAL)
[2019-05-20 08:32] LABS: FERRITIN 197.8 ng/mL (13-150)
[2019-05-20] MEDS: CYCLOBENZAPRINE 10MG TABLET PO PRN ×2 (10:00→21:24)
[2019-05-20] MEDS: DIAZEPAM 5 MG TABLET PO PRN (10:02)
[2019-05-20] MEDS: CEFDINIR 300 MG CAPSULE PO SCH ×2 (10:03→21:25)
[2019-05-20] MEDS: GABAPENTIN 300 MG CAPSULE PO SCH ×2 (10:04→21:25)
[2019-05-20] MEDS: HYDROCHLOROTHIAZIDE 25 MG TABLET PO SCH (10:07)
[2019-05-20] MEDS: PATIENT OWN MED: SULFASALAZINE 500 MG PO SCH ×2 (10:08→21:26)
--- NOTE | 2019-05-20 14:17 | Physical Therapy Tx Note ---
Physical Therapy Tx Note - Treatment Note Tolerated: Good Total Time Spent With Patient: 15 Physical Therapy Tx Note: Detail (Pt up in room w/nrsg and daughter, ready to go to appointment w/Dr. Gonzalez. PT went out to parking lot w/daughter to see vehicle (Jeep with running board about 30" from the ground). Located footstool to provide step to running board. Pt ambulated from room to stairwell; descended three steps holding onto rail w/B hands, in reciprocal manner, then used walker to go out to parking lot, ambulating w/supervision. Held onto walker and door handle to step onto footstool, onto running board, and into vehicle onto seat w/SBA. Assisted daughter to place footstool and walker into back of vehicle and discussed technique to get out of vehicle. Pt expressed good understanding.) Physical Therapy Problem List: Detail (1) Painful ambulation with community distances 2) Decreased R LE and core strength) Physical Therapy Goals: 1) Patient will ambulate community distances with back and R hip pain at a level 3 and lower consistently. 2) The patient will be independent with HEP of core strengthening exercises and demonstrate good understanding of proper body mechanics with all functional activities. Prognosis: Good Physical Therapy Plan: PT 2-3 times a week M-F for instruction in core exercises and proper body mechanics and completion of functional activities without pain (ie: pain free ambulation) and transfer training including car transfers.
--- NOTE | 2019-05-20 18:09 | History & Physical ---
History of Present Illness - Date Date of Service for History & Physical: 05/20/19 - History of Present Illness Admitting Diagnosis: Weakness with ambulation due to surgical hemilaminectomy and displacement of nerve root secondary to bulging disc History of Present Illness: Anne Adames is a 74 y.o. F who admits to the Swing Bed Program at [facility] for physical deconditioning and pain management. She admitted on 05/15/19 with intractable low back pain that had worsened over 4 weeks time. She was also found to have a UTI and urinary retention for while a brandon was placed after failed trial of removal of first brandon. PCP: Ayah Emery NP Steak Sauce Maker: Dr. Saniya Luke 05/20/19 0950 Sitting up at edge of bed. Daughter at bedside. Pain controlled currently on oral Percocet. Pt going to appointment with Dr. Gonzalze (Pain Management) for evaluation today. Has appointment with Dr. Tapia (Urology) on 05/25/19 re: new urinary retention. General - Cognitive Patterns Orientation: Oriented x3 - Communication Preferred Language?: Khmer Credit Compliance Officer Required: No Level of Education: College Preferred Method of Learning: Seeing, Doing, Reading Comprehension Ability: No Impairment Able to Read: Yes Able to Write: Yes Select best description of speech pattern: Clear Speech Ability to express ideas and wants: Understood Understanding verbal content: Understands - Psychosocial Well-Being Usual Living Arrangement: Children - Physical Functioning Activity Level: Up with assist x1 Turning: With partial assist ROM Ability: Moves all extremities Assistive Devices: 4 Wheel Walker Ambulation Ability: Independent Bed Mobility: Needs Assist Transfer Ability: Needs Assist Bathing Ability: Needs Assist Personal Hygiene: Needs Assist Dressing Ability: Needs Assist Eating (Feeding) Ability: Independent Toileting Ability: Independent Administer Own Medication: Needs Assist - Continence Bowel Pattern: Normal for Patient - Dental Status Unable to examine: Not Assessed/No Information Broken or loosely fitting full or partial dentures: Not Assessed/No Information No natural teeth or tooth fragment(s) (edentulous): Not Assessed/No Information Abnormal mouth tissue (ulcers, masses, oral lesions, etc.): Not Assessed/No Information Obvious or likely cavity or broken natural teeth: Not Assessed/No Information Inflamed or bleeding gums or loose natural teeth: Not Assessed/No Information Mouth/facial pain, discomfort or difficulty chewing: Not Assessed/No Information - Nutrition Screening Poor oral intake > 1 week: No Unplanned weight loss in specified time frame: No Nutrition Support via tube feedings or parenteral nutrition: No Pressure Ulcer: No Significantly underweight define as BMI <18.5 kg/m2: No Albumin <2.5mg/dL: No Persistent nausea/vomiting/diarrhea >3 days: No Difficulty chewing/swallowing/mouth sores: No Admitting Diagnosis: No Nutrition Risk Score: Low Risk Review of Systems Reviewed: No additional complaints except as noted below Constitutional: Denies: Chills, Fever Cardiovascular: Denies: Chest pain Gastrointestinal: Denies: Constipation Genitourinary: Reports: Retention Musculoskeletal: Reports: Back pain Past Medical History - SOCIAL HISTORY Smoking Status: Light tobacco smoker (<10/day) Alcohol Use: Rare - SURGICAL HISTORY Past Surgical History: andrew. back. abdominal sx to remove ectopic . cardiac cath - RESPIRATORY Hx Respiratory Disorders: No Hx Asthma: Yes - CARDIOVASCULAR Hx Cardio Disorders: Yes Hx Hypertension: Yes Comment:: "small vessel disease" - NEURO Hx Neuro Disorders: No Hx Neuropathy: Yes - GI Hx GI Disorders: No Hx Pancreatitis: Yes Comment:: cholycyctectomy - Hx Genitourinary Disorders: No Hx Kidney Stones: No (stage 2/3 CKD) Hx Renal Disease: Yes Hx UTI: Yes (many years ago) - ENDOCRINE Hx Endocrine Disorders: Yes Hx Diabetes: Yes - MUSCULOSKELETAL Hx Musculoskeletal Disorders: No Hx Back Injury: Yes (meningitis, sx at L4 - L5) - PSYCH Hx Psych Problems: No Hx Depression: Yes Comment:: PTSD after - HEMATOLOGY/ONCOLOGY Hx Hematology/Oncology Disorders: No Family Medical History Any Significant Family History?: No Hx Anxiety: Brother/Sister Hx Diabetes: Mother Hx Heart Disease: Father, Mother *Heart Comment: Father-90& occluded carotid H&P Meds/Allergies - Allergies Allergies: Allergies Allergy/AdvReac Type Severity Reaction Status Date / Time artificial sweeteners Allergy Mild hives Uncoded 05/15/19 21:25 - Active Medications Active Medications: Current Medications Albuterol Sulfate (Ventolin Hfa) 2 puff INH Q4H PRN PRN Reason: DIFFICULTY IN BREATHING Atorvastatin Calcium (Lipitor) 10 mg PO QHS [facility] Last Admin: 05/19/19 21:26 Dose: 10 mg Documented by: Cefdinir (Cefdinir) 300 mg PO BID [facility] Stop: 05/22/19 10:01 Last Admin: 05/20/19 10:03 Dose: 300 mg Documented by: Cyclobenzaprine HCl (Flexeril) 5 mg PO TID PRN PRN Reason: MUSCLE SPASM Last Admin: 05/20/19 10:00 Dose: 5 mg Documented by: Diazepam (Valium) 5 mg PO Q8H PRN PRN Reason: MUSCLE SPASM Last Admin: 05/20/19 10:02 Dose: 5 mg Documented by: Gabapentin (Neurontin) 300 mg PO BID [facility] Last Admin: 05/20/19 10:04 Dose: 300 mg Documented by: Hydrochlorothiazide (Hctz 25mg) 25 mg PO DAILY [facility] Last Admin: 05/20/19 10:07 Dose: 25 mg Documented by: Lisinopril (Zestril) 10 mg PO QHS [facility] Last Admin: 05/19/19 21:23 Dose: 10 mg Documented by: Magnesium Hydroxide (Milk Of Magnesium) 30 ml PO DAILY PRN PRN Reason: CONSTIPATION Oxycodone/Acetaminophen (Percocet 5-325 Mg Tablet) 1 udtab PO Q4H PRN PRN Reason: PAIN - MOD TO SEVERE (5-10) Last Admin: 05/20/19 16:03 Dose: 1 udtab Documented by: Patient Own Med: (Sulfasalazine 500 Mg) 1 each PO BID [facility] Last Admin: 05/20/19 10:08 Dose: 1 each Documented by: Zinc Oxide (Desitin) 10 gm TOP ASDIR PRN PRN Reason: RASH Physical Exam - Vital Signs Vital Signs: Vital Signs - Last 24 Hrs Temp Pulse Resp BP BP Pulse Ox 05/20/19 11:17 97.8 F 135/85 05/20/19 07:53 97.7 F 82 18 149/59 99 05/19/19 20:00 98.6 F 94 H 18 146/59 99 - General General Appearance: Alert, Oriented x3, Cooperative, No acute distress - Respiratory Respiratory exam: negative: Accessory muscle use - Back Back exam: Reports: Paraspinal tenderness - Neurological Neurological exam: Alert, CN II-XII intact, Oriented X3 - Psychiatric Psychiatric exam: Normal affect, Normal mood - Skin Skin exam: Dry, Intact, Warm H&P Results - Labs Result Diagrams: 05/20/19 07:58 Labs Last 24 Hours: Laboratory Results - last 24 hr 05/20/19 05/20/19 07:58 07:58 WBC 11.2 RBC 3.38 L Hgb 10.6 L Hct 32.0 L MCV 94.7 MCH 31.3 MCHC 33.1 RDW 13.8 Plt Count 271 MPV 9.2 Neutrophils % 65.0 Eosinophils % Not Reportable Basophils % Not Reportable Absolute Neutrophils 6.91 Lymphocytes 30.0 Monocytes 5.0 Platelet Estimate Normal RBC Morphology Normal Iron 73 TIBC 227 % Saturation 32 Ferritin 197.8 H Discharge Potential - Discharge Needs Patient Discharge Plan Description: Return Home Community Services Needed at Discharge: Physical Therapy Plan - Swing Bed Certification Initial Certification Due: 05/19/19 14 Day Re-Cert Due: 06/02/19 44 Day Re-Cert Due: 07/02/19 74 Day Re-Cert Due: 08/01/19 - Detailed Diagnosis and Plan (1) Physical deconditioning Current Visit: Yes Status: Acute Base Code: R53.81 - OTHER MALAISE Comment: 05/20/19 -PT/OT (2) Low back pain Current Visit: Yes Status: Acute Base Code: M54.5 - LOW BACK PAIN Comment: 05/20/19 -Lumbar MRI 05/01/19: surgical hemilaminectomy changes at L5-S1, S1 nerve root signal chages due to surgical scarring vs posterior displacement of nerve root secondary to disck bulging or protrusion, disk bulging at L4-L5, advanced facet arthropathy, no lumbar spinal stenosis, multilevel neural foraminal narrowing -Continue Percocet 5/325mg PO q. 4 hours PRN -Continue Gabapentin 300mg PO BID -Pain management consult today with Dr. Gonzalez (3) Urinary tract infection Current Visit: No Status: Acute Base Code: N39.0 - URINARY TRACT INFECTION, SITE NOT SPECIFIED Comment: 05/20/19: - UA: large leuk, 3-5 WBC - Cefdinir PO x 4 more doses - Encourage PO fluids (4) Urinary retention Current Visit: No Status: Acute Base Code: R33.9 - RETENTION OF URINE, UNSPECIFIED Comment: 05/20/19: - Urinary retention due to UTI vs neuro changes due to disc bulging vs ? - Trial of brandon removal on 05/17/19 unsuccessful, brandon replaced on 05/18/19 with output of 1200ml with brandon insertion - Continue brandon catheter - Urology consult placed - appointment on 05/25/[address] Tapia at [facility] - Stop Flomax 0.4mg daily (5) Full code status Current Visit: No Status: Acute Base Code: Z78.9 - OTHER SPECIFIED HEALTH STATUS Comment: 05/20/19: - Full code this admission
[2019-05-20] MEDS: ATORVASTATIN 20 MG TABLET PO SCH (21:25)
[2019-05-20] MEDS: LISINOPRIL 10 MG TABLET PO SCH (21:26)
[2019-05-21] MEDS: OXYCODONE HCL/APAP 5MG/325MG TABLET PO PRN ×4 (01:49→18:12)
[2019-05-21] MEDS: DIAZEPAM 5 MG TABLET PO PRN ×3 (01:51→22:34)
[2019-05-21] MEDS: CYCLOBENZAPRINE 10MG TABLET PO PRN ×2 (06:27→20:01)
[2019-05-21] MEDS: GABAPENTIN 300 MG CAPSULE PO SCH ×2 (09:29→22:34)
[2019-05-21] MEDS: CEFDINIR 300 MG CAPSULE PO SCH ×2 (09:29→22:32)
[2019-05-21] MEDS: HYDROCHLOROTHIAZIDE 25 MG TABLET PO SCH (09:30)
[2019-05-21] MEDS: PATIENT OWN MED: SULFASALAZINE 500 MG PO SCH ×2 (09:31→22:36)
--- NOTE | 2019-05-21 10:43 | Physical Therapy Tx Note ---
Physical Therapy Tx Note - Treatment Note Tolerated: Good Total Time Spent With Patient: 25 Physical Therapy Tx Note: Detail (The patient complains of back and R hip pain but did not rate her pain using 0-10 pain scale. When asked what she needed to practice when she got home, patient stated she wanted to ambulate on stairs another time. The patient ambulated independently on 3 stairs with use of railing. The patient then ambulated independently with 4 wheeled walker a distance of 136 feet x 1 with gaurded movements. The patient was instructed in abdominal isometrics and gluteal sets in a seated position. Proper body mechanics were reviewed and patient demonstrated good understanding of these. Patient is independent with ambulation and all transfers with less gaurded movements then initially. Pain level is variable with ambulation.) Physical Therapy Problem List: Detail (1) Painful ambulation with community distances 2) Decreased R LE and core strength) Physical Therapy Goals: 1) Patient will ambulate community distances with back and R hip pain at a level 3 and lower consistently. 2) The patient will be independent with HEP of core strengthening exercises and demonstrate good understanding of proper body mechanics with all functional activities.( Goal Met) Physical Therapy Plan: PT 2-3 times a week M-F for instruction in core exercises and proper body mechanics and completion of functional activities without pain (ie: pain free ambulation) and transfer training including car transfers.
--- NOTE | 2019-05-21 14:17 | Occupational Therapy Tx Note ---
Occupational Therapy Tx Note - Treatment Note Tolerated: Other (Pt refused) Occupational Therapy Treatment Note: Detail (Pt laying in bed upon arrival. Refused OT kitchen/car body designer instruct in rehab gym due to having just walked with nsg and being "exhausted." Pt states she is no longer leaving today and will be staying until Friday. Let patient know that we have the handouts available in the rehab gym and if something happens where she is discharged over the weekend, that she can have someone come pick them up next week. Otherwise, will attempt to go over this information and have patient practice in rehab kitchen on Friday. Pt did not want the handouts today bc she stated that she wanted to go over them in person with a therapist.) Occupational Therapy Problem List: Detail (1. Decreased knowledge of postures and body mechanics to prevent back pain. 2. Decreased knowledge of managing kitchen tasks with good body mechanics from walker level.) Occupational Therapy Goals: 1. Pt will demo safety and independence with postures and body mechanics to prevent back pain throughout Tx. 2. Pt will demo managing kitchen tasks from walker level while using good body mechanics. Occupational Therapy Plan: Pt will benefit from skilled IP OT while at [facility] to address goals in order to prevent further back pain and increase safety and independence prior to return home at [facility].
[2019-05-21] MEDS: ATORVASTATIN 20 MG TABLET PO SCH (22:32)
[2019-05-21] MEDS: LISINOPRIL 10 MG TABLET PO SCH (22:34)
[2019-05-22] MEDS: OXYCODONE HCL/APAP 5MG/325MG TABLET PO PRN ×2 (06:02→15:44)
[2019-05-22] MEDS: HYDROCHLOROTHIAZIDE 25 MG TABLET PO SCH (10:09)
[2019-05-22] MEDS: DIAZEPAM 5 MG TABLET PO PRN (10:09)
[2019-05-22] MEDS: CEFDINIR 300 MG CAPSULE PO SCH (10:10)
[2019-05-22] MEDS: GABAPENTIN 300 MG CAPSULE PO SCH ×2 (10:10→21:22)
[2019-05-22] MEDS: PATIENT OWN MED: SULFASALAZINE 500 MG PO SCH ×2 (10:30→21:27)
[2019-05-22] MEDS: CYCLOBENZAPRINE 10MG TABLET PO PRN (21:22)
[2019-05-22] MEDS: ATORVASTATIN 20 MG TABLET PO SCH (21:25)
[2019-05-22] MEDS: LISINOPRIL 10 MG TABLET PO SCH (21:27)
[2019-05-23] MEDS: OXYCODONE HCL/APAP 5MG/325MG TABLET PO PRN ×2 (00:47→11:24)
[2019-05-23] MEDS: HYDROCHLOROTHIAZIDE 25 MG TABLET PO SCH (09:38)
[2019-05-23] MEDS: GABAPENTIN 300 MG CAPSULE PO SCH ×2 (09:39→21:14)
[2019-05-23] MEDS: PATIENT OWN MED: SULFASALAZINE 500 MG PO SCH ×2 (09:40→21:18)
[2019-05-23] MEDS: ATORVASTATIN 20 MG TABLET PO SCH (21:14)
[2019-05-23] MEDS: DIAZEPAM 5 MG TABLET PO PRN (21:16)
[2019-05-23] MEDS: LISINOPRIL 10 MG TABLET PO SCH (21:16)
[2019-05-24] MEDS: OXYCODONE HCL/APAP 5MG/325MG TABLET PO PRN ×2 (01:34→12:53)
[2019-05-24] MEDS: PATIENT OWN MED: SULFASALAZINE 500 MG PO SCH ×2 (09:21→21:42)
[2019-05-24] MEDS: HYDROCHLOROTHIAZIDE 25 MG TABLET PO SCH (09:21)
[2019-05-24] MEDS: GABAPENTIN 300 MG CAPSULE PO SCH ×2 (09:21→21:41)
[2019-05-24] MEDS: CYCLOBENZAPRINE 10MG TABLET PO PRN (09:21)
--- NOTE | 2019-05-24 11:21 | Physician Progress Note ---
Subjective - Date Date of Progress Note: 05/24/19 - Admitting Diagnosis Diagnosis: Weakness with ambulation due to surgical hemilaminectomy and displacement of nerve root secondary to bulging disc - Subjective Nursing Care Plan Problem List Activity Intolerance (Swing Bed) Start: 05/19/19 19:05 Freq: Status: Active Protocol: Created 05/19/19 19:05 SAF (Rec: 05/19/19 19:05 SAF [email or web address]-1) Altered Thought Process (Fall Risk) Start: 05/19/19 20:3 8 Freq: Status: Active Protocol: Created 05/19/19 20:38 LMS (Rec: 05/19/19 20:38 LMS [email or web address]-1) Impaired Mobility (Fall Risk) Start: 05/19/19 20:38 Freq: Status: Active Protocol: Created 05/19/19 20:38 LMS (Rec: 05/19/19 20:38 LMS [email or web address]-1) Knowledge Deficit (Swing Bed) Start: 05/19/19 19:05 Freq: Status: Active Protocol: Created 05/19/19 19:05 SAF (Rec: 05/19/19 19:05 SAF ASTS-1) Pain (Swing Bed) Start: 05/19/19 19:05 Freq: Status: Active Protocol: Created 05/19/19 19:05 SAF (Rec: 05/19/19 19:05 SAF ASTS-1) Risk for Injury (Fall Risk) Start: 05/19/19 20:38 Freq: Status: Active Protocol: Created 05/19/19 20:38 LMS (Rec: 05/19/19 20:38 LMS ASTS-1) Subjective: Pt is seen in her room. Sitting in recliner chair. Reports that she is always in pain but is trying to take less of the narcotics and is trying to space it out. Has mikki taking 1-2 Percocet daily and 1-[address] Gonzalez last and is waiting to be scheduled for a spinal stimulator. Has consult with Dr. Tapia (Urology) tomorrow regarding urinary retention. - Subjective Detail Genitourinary: Reports: Retention Musculoskeletal: Reports: Back pain General - Communication Select best description of speech pattern: Clear Speech Ability to express ideas and wants: Understood Understanding verbal content: Understands - Physical Functioning Activity Level: Up with assist x1 Turning: Self ad danish ROM Ability: Moves all extremities Assistive Devices: 4 Wheel Walker Ambulation Ability: Independent Bed Mobility: Independent Transfer Ability: Independent Bathing Ability: Independent Personal Hygiene: Independent Dressing Ability: Independent Eating (Feeding) Ability: Independent Toileting Ability: Independent Administer Own Medication: Independent - Continence Bowel Pattern: Normal for Patient Bladder Pattern: Normal Meds/Allergies - Allergies Allergies Allergy/AdvReac Type Severity Reaction Status Date / Time artificial sweeteners Allergy Mild hives Uncoded 05/15/19 21:25 - Active Medications Current Medications Albuterol Sulfate (Ventolin Hfa) 2 puff INH Q4H PRN PRN Reason: DIFFICULTY IN BREATHING Atorvastatin Calcium (Lipitor) 10 mg PO QHS [facility] Last Admin: 05/23/19 21:14 Dose: 10 mg Documented by: Cyclobenzaprine HCl (Flexeril) 5 mg PO TID PRN PRN Reason: MUSCLE SPASM Last Admin: 05/24/19 09:21 Dose: 5 mg Documented by: Diazepam (Valium) 5 mg PO Q8H PRN PRN Reason: MUSCLE SPASM Last Admin: 05/23/19 21:16 Dose: 5 mg Documented by: Gabapentin (Neurontin) 300 mg PO BID [facility] Last Admin: 05/24/19 09:21 Dose: 300 mg Documented by: Hydrochlorothiazide (Hctz 25mg) 25 mg PO DAILY [facility] Last Admin: 05/24/19 09:21 Dose: 25 mg Documented by: Lisinopril (Zestril) 10 mg PO QHS [facility] Last Admin: 05/23/19 21:16 Dose: 10 mg Documented by: Magnesium Hydroxide (Milk Of Magnesium) 30 ml PO DAILY PRN PRN Reason: CONSTIPATION Oxycodone/Acetaminophen (Percocet 5-325 Mg Tablet) 1 udtab PO Q4H PRN PRN Reason: PAIN - MOD TO SEVERE (5-10) Last Admin: 05/24/19 01:34 Dose: 1 udtab Documented by: Patient Own Med: (Sulfasalazine 500 Mg) 1 each PO BID [facility] Last Admin: 05/24/19 09:21 Dose: 1 each Documented by: Zinc Oxide (Desitin) 10 gm TOP ASDIR PRN PRN Reason: RASH Objective - Vital Signs Vital Signs: Vital Signs - Last 24 Hrs Temp Pulse Resp BP Pulse Ox 08/19/19 08:00 97.7 F 98 H 16 137/51 93 L 05/23/19 20:00 98.7 F 99 H 16 144/58 98 - General General Appearance: Alert, Oriented x3, Cooperative, No acute distress - Respiratory Respiratory exam: negative: Accessory muscle use H&P Results - Labs Result Diagrams: 05/20/19 07:58 Discharge Potential - Discharge Needs Patient Discharge Plan Description: Return Home Community Services Needed at Discharge: Physical Therapy Plan - Swing Bed Certification Initial Certification Due: 05/19/19 14 Day Re-Cert Due: 06/02/19 44 Day Re-Cert Due: 07/02/19 74 Day Re-Cert Due: 08/01/19 - Detailed Diagnosis and Plan (1) Physical deconditioning Current Visit: Yes Status: Acute Base Code: R53.81 - OTHER MALAISE Comment: 05/24/19 -PT/OT (2) Low back pain Current Visit: Yes Status: Acute Base Code: M54.5 - LOW BACK PAIN Comment: 05/24/19 -Lumbar MRI 05/01/19: surgical hemilaminectomy changes at L5-S1, S1 nerve root signal chages due to surgical scarring vs posterior displacement of nerve root secondary to disck bulging or protrusion, disk bulging at L4-L5, advanced facet arthropathy, no lumbar spinal stenosis, multilevel neural foraminal narrowing -Continue Percocet 5/325mg PO q. 4 hours PRN -Continue Gabapentin 300mg PO BID -Pain management consult today with Dr. Gonzalez (3) Urinary retention Current Visit: No Status: Acute Base Code: R33.9 - RETENTION OF URINE, UNSPECIFIED Comment: 05/24/19: - Urinary retention due to UTI vs neuro changes due to disc bulging vs ? - Trial of brandon removal on 05/17/19 unsuccessful, brandon replaced on 05/18/19 with output of 1200ml with brandon insertion - Continue brandon catheter - Urology consult placed - appointment on 05/25/[address] Tapia at [facility] - Stop Flomax 0.4mg daily (4) Full code status Current Visit: No Status: Acute Base Code: Z78.9 - OTHER SPECIFIED HEALTH STATUS Comment: 05/24/19: - Full code this admission (5) DVT prophylaxis Current Visit: No Status: Acute Base Code: Z29.9 - ENCOUNTER FOR RI OPHYLACTIC MEASURES, UNSPECIFIED Comment: 05/24/19: - Moderate risk due to age, hospitalization, and decreased mobility - Encourage ambulation with nursing staff and PT/OT
--- NOTE | 2019-05-24 12:35 | Occupational Therapy Tx Note ---
Occupational Therapy Tx Note - Treatment Note Tolerated: Good Total Time Spent With Patient: 40 (2 TA) Occupational Therapy Treatment Note: Detail (S: Ok to see per YESSICA Trejo. Pt upright in chair upon therapist arrival, agreeable to OT Tx and wanting to walk. O: Sit to stand to 4ww and functional mobility from bedside chair to chapel with 4ww independently with good safety awareness and use of brakes on walker, increased time and cautiousness. Therapist assist for WC mobility to therapy gym. OT reviews handouts - kitchen tasks from walker level, body mechanics, etc. with Pt who verbalizes understanding. Pt demos safety with kitchen tasks, incl. open/closing oven and refrigerator doors, managing hot items, and carrying items on her walker, all with good walker placement for safety and success. Pt reports she will have her son Waldemar move the items she frequently uses - pots/pans, plates/bowls, etc. to the upper shelf of bottom cabinets and fridge, and to the lower shelf of the upper cabinets for ease of reach and to minimizeback pain. Also discussed leaving commonly used items on the counter. Pt demos good use of body mechanics, facing whole body toward heavy items and bringing them close to her body. Therapist assist for WC mobility return to bedroom. Very infrequently (2x during Tx), Pt forgets to lock walker brakes before sit/stand, Pt aware and continues to remind herself but feels safe.) Occupational Therapy Problem List: Detail (PREVIOUS PROBLEM LIST: 1. Decreased knowledge of postures and body mechanics to prevent back pain. 2. Decreased knowledge of managing kitchen tasks with good body mechanics from walker level.) Occupational Therapy Goals: ALL GOALS MET: 1. Pt will demo safety and independence with postures and body mechanics to prevent back pain throughout Tx. 2. Pt will demo managing kitchen tasks from walker level while using good body mechanics. Prognosis: Good Occupational Therapy Plan: Pt has met all skilled IP OT, no further needs/goals identified. DC OT services. Thank you for this referral.
[2019-05-24] MEDS: ATORVASTATIN 20 MG TABLET PO SCH (21:38)
[2019-05-24] MEDS: DIAZEPAM 5 MG TABLET PO PRN (21:41)
[2019-05-24] MEDS: LISINOPRIL 10 MG TABLET PO SCH (21:43)
[2019-05-25] MEDS: OXYCODONE HCL/APAP 5MG/325MG TABLET PO PRN ×2 (07:34→18:27)
[2019-05-25] MEDS: DIAZEPAM 5 MG TABLET PO PRN (09:23)
[2019-05-25] MEDS: PATIENT OWN MED: SULFASALAZINE 500 MG PO SCH ×2 (09:24→22:30)
[2019-05-25] MEDS: GABAPENTIN 300 MG CAPSULE PO SCH ×2 (09:24→22:27)
[2019-05-25] MEDS: HYDROCHLOROTHIAZIDE 25 MG TABLET PO SCH (09:25)
--- NOTE | 2019-05-25 10:35 | Rehab Discharge Summary ---
Patient Information - Patient Information Diagnosis: Intractible back pain, urinary retention Ordered Treatment: PT Evaluate and Treat Surgery: No Past Med/Bautista Hx Detail: Detail (hemilaminectomy L5-S1, buldging disk L4-L5, advanced facet arthropathy, multilevel neural foraminal narrowing) Past Medical/Surgical Hx: PAST MEDICAL/SURGICAL HISTORY Past Surgical History andrew back abdominal sx to remove ectopic cardiac cath PMH - Respiratory Hx Respiratory Disorders No Hx Asthma Yes PMH - Cardiovascular Hx Cardiovascular Disorders Yes Hx Cardiac Catheterization Yes Hx Hypertension Yes Comment: "small vessel disease" PMH - Neuro Hx Neurological Disorders No Hx Neuropathy Yes PMH - GI Hx Gastrointestinal Disorders No Hx Pancreatitis Yes Comment: cholycyctectomy PMH - Hx Genitourinary Disorders No Hx Kidney Stones No: stage 2/3 CKD Hx Renal Disease Yes Hx Urinary Tract Infection Yes: many years ago PMH - Endocrine Hx Endocrine Disorders Yes Hx Diabetes Yes Hx Thyroid Disease No PMH - Musculoskeletal Hx Musculoskeletal Disorders No Hx Arthritis Yes Hx Back Injury Yes: meningitis, sx at L4 - L5 PMH - Psych Hx Psychiatric Problems No Hx Depression Yes Comment: PTSD after PMH - Hematology/Oncology Hx Hematology/Oncology No Disorders Premorbid Status: Detail (Prior to intractable back pain, Pt was independent with all I/ADLs and functional mobility and driving. She uses a self-propelled vaccuum.) Social History: Detail (Pt lives with her son who works multimedia educational specialist. The farmhouse has 3 steps at the entrance and bilateral hand-rails. There is also a back entrance with 3 steps/slabs with a left side hand-rail. Her bedroom and bathroom are on the main level. The bathroom is equipped with a tub/shower with a non-slip surface, a grab bar inside and outside the shower, and a standard toilet with a sink on her right side for support in standing. She purchased a 4WW one week prior to admit that she has been using due to her back pain and her son was assisting with transfers the week prior to admit.) Precautions: [place], Fall Subjective Information - Subjective Information Per Patient (The patient had varying complaints of low back and R LE pain.) Objective Data - Mental Status Patient Orientation: Oriented x3 - ROM Within normal limits (LE AROM is WNL, lumbar mobility was not tested.) - Strength/Tone Not within normal limits (The patient's L LE strength was 4+/5 to 5/5 throughout and R LE was generally 4- to 4/5.) - Bed Mobility Independent (The patient was independent with supine to and from sit transfer and scooting up in bed. The patient was also able to roll using proper technique for back protection.) - Transfers Independent (The patient was independent with sit to and from stand transfer and toilet transfer . Patient continued to use gaurded movements but less then initially.) - Balance Balance Sitting: Good Balance Standing: Good - Gait Detail (The patient ambulated with 4 wheeled walker community distances (500 feet plus) with varying pain levels from 1 to 3 after ambulating. The patient ambulated on 3 steps using one railing independently. The patient ambulated with less gaurded movements then initially, however continues to hold her trunk rigidly.) Therapy Assessment - Therapy Assessment Detail (The patient is independent with all mobility with less guarded movements then initially. The patient is independent with HEP of core strengthening.) Patient Education - Patient Education Teaching Topic: Exercise/Activity (The patient was independent with core strengthening including gluteal sets, abdominal isometrics.) Response: Return Demonstration Teaching Method: Demonstration Teaching Recipient: Patient Barriers To Learning: None Problem List - Problem List Physical Therapy Problem List: Detail (1) Painful ambulation with community distances 2) Decreased R LE and core strength) Occupational Therapy Problem List: Detail (PREVIOUS PROBLEM LIST: 1. Decreased knowledge of postures and body mechanics to prevent back pain. 2. Decreased knowledge of managing kitchen tasks with good body mechanics from walker level.) Goals - Goals Physical Therapy Goals: 1) Patient will ambulate community distances with back and R hip pain at a level 3 and lower consistently.(Goal Met). 2) The patient will be independent with HEP of core strengthening exercises and demonstrate good understanding of proper body mechanics with all functional activities.( Goal Met) Occupational Therapy Goals: ALL GOALS MET: 1. Pt will demo safety and independence with postures and body mechanics to prevent back pain throughout Tx. 2. Pt will demo managing kitchen tasks from walker level while using good body mechanics. Plan - Plan Physical Therapy Plan: All skilled PT goals have been met and patient is discharged from PT at this time. Patient is to continue ambulating with Nursing staff and is to continue with Core strengthening HEP. Occupational Therapy Plan: Pt has met all skilled IP OT, no further needs/goals identified. DC OT services. Thank you for this referral.
--- NOTE | 2019-05-25 12:21 | Rehab Discharge Summary ---
Patient Information - Patient Information Diagnosis: Intractible back pain, urinary retention Ordered Treatment: OT Evaluate and Treat Surgery: No Past Med/Bautista Hx Detail: Detail (hemilaminectomy L5-S1, buldging disk L4-L5, advanced facet arthropathy, multilevel neural foraminal narrowing) Past Medical/Surgical Hx: PAST MEDICAL/SURGICAL HISTORY Past Surgical History andrew back abdominal sx to remove ectopic cardiac cath PMH - Respiratory Hx Respiratory Disorders No Hx Asthma Yes PMH - Cardiovascular Hx Cardiovascular Disorders Yes Hx Cardiac Catheterization Yes Hx Hypertension Yes Comment: "small vessel disease" PMH - Neuro Hx Neurological Disorders No Hx Neuropathy Yes PMH - GI Hx Gastrointestinal Disorders No Hx Pancreatitis Yes Comment: cholycyctectomy PMH - Hx Genitourinary Disorders No Hx Kidney Stones No: stage 2/3 CKD Hx Renal Disease Yes Hx Urinary Tract Infection Yes: many years ago PMH - Endocrine Hx Endocrine Disorders Yes Hx Diabetes Yes Hx Thyroid Disease No PMH - Musculoskeletal Hx Musculoskeletal Disorders No Hx Arthritis Yes Hx Back Injury Yes: meningitis, sx at L4 - L5 PMH - Psych Hx Psychiatric Problems No Hx Depression Yes Comment: PTSD after PMH - Hematology/Oncology Hx Hematology/Oncology No Disorders Premorbid Status: Detail (Prior to intractable back pain, Pt was independent with all I/ADLs and functional mobility and driving. She uses a self-propelled vaccuum.) Social History: Detail (Pt lives with her son who works maritime officer. The farmhouse has 3 steps at the entrance and bilateral hand-rails. There is also a back entrance with 3 steps/slabs with a left side hand-rail. Her bedroom and bathroom are on the main level. The bathroom is equipped with a tub/shower with a non-slip surface, a grab bar inside and outside the shower, and a standard toilet with a sink on her right side for support in standing. She purchased a 4WW one week prior to admit that she has been using due to her back pain and her son was assisting with transfers the week prior to admit.) Precautions: [place], Fall Subjective Information - Subjective Information Per Patient (Pt agreeable throughout Tx's and motivated to return to PLOF.) Objective Data - Pain Pain Present: Yes (Pt's back pain decreased throughout her Tx's with OT, initially very functionally limiting, progressing to very bareable and Pt less guarded and independent at last Tx.) - Mental Status Patient Orientation: Oriented x3 - Visual Perception Appears within normal limits for therapeutic activities - ROM Within normal limits - Strength/Tone Within normal limits (4/5 B shoulders d/t arthritis, otherwise WNL) - Coordination Appears within normal limits for therapeutic activities - Bed Mobility Independent (Good use of log roll to prevent back pain throughout hospital stay .) - Transfers Independent (Sit to/from stand to 4ww with good balance and safe use of walker, progressively less guarded mvmt throughout hospital stay.) - Balance Balance Sitting: Good Balance Standing: Fair (With use of walker/grab bar.) - Sensation Intact - Gait Detail (Functional mobility household distance, increasing speed and confidence throughout OT Tx's, safe use of 4WW, use of brakes, and method to safely sit on walker.) - ADL's/IADL's Detail (Pt demos MOD I with dressing using AE she owns at home and reports she has a long-handled loofa for showering. Educated Pt on benefits of shower chair and rise for toilet and she verbalizes understanding.) Therapy Assessment - Therapy Assessment Detail (Pt demos safety and independence with all ADLs and functional mobility house hold disatances with walker. Pt near baseline level, now using walker.) Patient Education - Patient Education Teaching Topic: Equipment Use Response: Return Demonstration, Verbalize Understanding Teaching Method: Discussion, Demonstration, Handout Teaching Recipient: Patient Barriers To Learning: None (Safe use of walker and body mechanics during kitchen tasks - Pt demos understanding and was given handouts for further reference upon return home.) Problem List - Problem List Physical Therapy Problem List: Detail (1) Painful ambulation with community d istances 2) Decreased R LE and core strength) Occupational Therapy Problem List: Detail (PREVIOUS PROBLEM LIST: 1. Decreased knowledge of postures and body mechanics to prevent back pain. 2. Decreased knowledge of managing kitchen tasks with good body mechanics from walker level.) Goals - Goals Physical Therapy Goals: 1) Patient will ambulate community distances with back and R hip pain at a level 3 and lower consistently.(Goal Met). 2) The patient will be independent with HEP of core strengthening exercises and demonstrate good understanding of proper body mechanics with all functional activities.( Goal Met) Occupational Therapy Goals: ALL GOALS MET: 1. Pt will demo safety and independence with postures and body mechanics to prevent back pain throughout Tx. 2. Pt will demo managing kitchen tasks from walker level while using good body mechanics. Prognosis - Prognosis Good Plan - Plan Physical Therapy Plan: All skilled PT goals have been met and patient is discharged from PT at this time. Patient is to continue ambulating with Nursing staff and is to continue with Core strengthening HEP. Occupational Therapy Plan: Pt has met all skilled IP OT, no further needs/goals identified. Pt to refer to handouts with any questions re: safety with kitchen tasks at walker level and proper body mechanics. DC OT services. Thank you for this referral.
[2019-05-25] MEDS ORDERED: LEVEMIR FLEXTOUCH 100 UNIT/ML INSULIN PEN SQ ONE (18:11)
[2019-05-25] MEDS: LISINOPRIL 10 MG TABLET PO SCH (22:27)
[2019-05-25] MEDS: ATORVASTATIN 20 MG TABLET PO SCH (22:27)
[2019-05-25] MEDS: CYCLOBENZAPRINE 10MG TABLET PO PRN (22:29)
[2019-05-26] MEDS: DIAZEPAM 5 MG TABLET PO PRN ×2 (02:48→15:13)
[2019-05-26 06:46] LABS: ABSOLUTE NEUTROPHIL COUNT 2.64; BASO % 0.3 % (0-6); EOS % 4.1 % (0-6); GRAN % 45.1 % (47-80); HEMATOCRIT 30.5 % (35.0-47.0); HEMOGLOBIN 9.8 gm/dl (11.6-16.0); LYMPH % 41.1 % (16-45); MEAN CELL VOLUME 96.5 fl (81-97); MEAN CORPUSCULAR HGB CONC 32.1 g/dl (32-36); MEAN PLATELET VOLUME 9.2 fl (7.4-10.4); MONO % 9.4 % (0-9); PLATELET COUNT 247 K/uL (130-400); RED BLOOD COUNT 3.16 M/uL (3.80-5.40); RED CELL DISTRIBUTION WIDTH 13.8 % (11.5-14.5); WHITE BLOOD COUNT W/O DIFF 5.9 K/uL (4.2-12.2)
--- NOTE | 2019-05-26 07:25 | Discharge Summary ---
Providers Discharge Summary Date: 05/26/19 Date of admission: 05/19/19 17:46 Expected Date of Discharge: 05/26/19 Attending physician: ALECIA BARBOUR Primary care physician: Ayah Emery N.P. Physical Exam - Vital Signs Vital Signs: Vital Signs - Last 24 Hrs Temp Pulse Resp BP BP Pulse Ox 05/25/19 20:00 97.8 F 98 H 16 126/44 96 05/25/19 09:52 97.9 F 148/64 05/25/19 08:30 97.9 F 96 H 16 148/64 97 - General General Appearance: Alert, Oriented x3, Cooperative, No acute distress - Head Head exam: Normal inspection - Eye Eye exam: Normal appearance, PERRL Pupils: Normal accommodation - ENT ENT exam: Normal exam, Mucous membranes moist, Normal external ear exam, Normal orophraynx, TM's normal bilaterally Ear exam: Normal external inspection. negative: External canal tenderness Nasal Exam: Normal inspection. negative: Discharge, Sinus tenderness Mouth exam: Normal external inspection, Tongue normal Teeth exam: Normal inspection. negative: Dental caries Throat exam: Normal inspection. negative: Tonsillar erythema, Tonsillar exudate - Neck Neck exam: Normal inspection, Full ROM. negative: Tenderness - Respiratory Respiratory exam: negative: Accessory muscle use - Cardiovascular Cardiovascular Exam: Regular rate, Normal rhythm, Normal heart sounds - GI/Abdominal GI/Abdominal exam: Soft, Normal bowel sounds. negative: Tenderness - Rectal Rectal exam: Deferred - exam: Deferred, Other (urinating well 500 ml at a time) - Extremities Extremities exam: Normal inspection, Full ROM, Normal capillary refill. negative: Tenderness - Back Back exam: Reports: Normal inspection, Paraspinal tenderness - Neurological Neurological exam: Alert, CN II-XII intact, Normal gait, Oriented X3 - Psychiatric Psychiatric exam: Normal affect, Normal mood - Skin Skin exam: Dry, Intact, Warm Hospitalization - Hospitalization Admission Diagnosis: Weakness with ambulation due to surgical hemilaminectomy and displacement of nerve root secondary to bulging disc - Hospitalization Course Disposition: Home, Self-Care Reason For Discharge/Transfer: Medical Stability Abnormal Labs: Abnormal Lab Results 05/20/19 05/20/19 05/26/19 Range/Units 07:58 07:58 06:30 RBC 3.38 L (3.80-5.40) M/uL Hgb 10.6 L (11.6-16.0) gm/dl Hct 32.0 L (35.0-47.0) % Gran % (47-80) % Monocytes % (0-9) % APTT (24.5-39.1) SECONDS Sodium 135 L (136-145) mmol/L Creatinine 1.0 H (0.5-0.9) mg/dL Random Glucose 145 H (74-109) mg/dL Ferritin 197.8 H (13-150) ng/mL 05/26/19 05/26/19 Range/Units 06:30 06:30 RBC 3.16 L (3.80-5.40) M/uL Hgb 9.8 L (11.6-16.0) gm/dl Hct 30.5 L (35.0-47.0) % Gran % 45.1 L (47-80) % Monocytes % 9.4 H (0-9) % APTT 23.8 L (24.5-39.1) SECONDS Sodium (136-145) mmol/L Creatinine (0.5-0.9) mg/dL Random Glucose (74-109) mg/dL Ferritin (13-150) ng/mL Condition at Discharge: (1) Good Discharge Diagnosis: deconditioning physical secondary to back pain lumbar area. urinary retention resolved. chronic low back pain Discharge Medications - Discharge Medications Prescriptions: Cyclobenzaprine HCl [Flexeril] 5 mg PO TID PRN #30 tablet PRN Reason: MUSCLE SPASM Hydrochlorothiazide [Hctz] 25 mg PO DAILY #30 tablet Gabapentin [Neurontin] 300 mg PO BID #60 capsule Home Medications: Ambulatory Orders Melatonin 3 mg PO QHS tab 11/25/17 [Last Taken Unknown] Mv,Calcium,Min/Iron/Folic/Vitk [Multi For Her Tablet] 1 each PO DAILY tab 11/25/17 [Last Taken Unknown] Acetaminophen [Tylenol 325Mg] 650 mg PO QHS 03/16/19 [Last Taken Unknown] Atorvastatin Calcium 20 mg PO DAILY 05/15/19 [Last Taken Unknown] Cyclobenzaprine HCl [Flexeril] 5 mg PO TID PRN #30 tablet 05/26/19 [Last Taken Unknown] Gabapentin [Neurontin] 300 mg PO BID #60 capsule 05/26/19 [Last Taken Unknown] Hydrochlorothiazide [Hctz] 25 mg PO DAILY #30 tablet 05/26/19 [Last Taken Unknown] Zinc Oxide [Desitin] 10 gm TOP ASDIR PRN tube 05/26/19 [Last Taken Unknown] Discharge Plan - Discharge Instructions Activity at Discharge: Increase Activity as Tolerated Diet at Discharge: Regular Diet, Low Salt Diet Additional Instructions: Appointment with Monica at [facility] on 06/02 at 6:20PM Use percocet twice a day as prescribed by Renetta 5/325 #21 use valium as prescribed by Renetta 5 mg twice a day #14 use as little percocet and valium as possible to prevent urinary retention use neuronton(gabapentin) 300 mg twice a day Quality Measures - Quality Measures Quality Measures: Advance Directives, Documentation of Current Medications in Medical Record, Elder Maltreatment Screen and Follow-Up Plan, Screening for High Blood Pressure and F/U Documented - Current Medications Quality Measure: Measure #130: Documentation of Current Medications Documentation of Current Medications: <Current Medications Documented/Reviewed> [G0029] - Blood Pressure Screening Quality Measure: Screening for High Blood Pressure and Follow-Up Documented Does Patient Have Any of the Following: Active Dx of HTN Blood Pressure Classification: Hypertensive Reading Systolic Measurement: 148 Diastolic Measurement: 64 Screening for High Blood Pressure: Patient Exclusion, Hx of HTN [G9744] - Advance Directives Quality Measure: Measure #47: Care Plan Advance Directives Established: No Advance Directives Information Provided To Patient: Already Provided Advance Directives on File: No Living Will: No Power of Fire Investigation Lieutenant: No Advance Care Planning: <Care Plan/Decision Maker Documented; Discussed & Documented> [8103F] - Elder Abuse Suspicion Index Screening: Elder Abuse Suspicion Index Screening Rely on people for bathing, dressing, shopping, banking, etc: No Prevented from getting food, clothes, medication, etc: No Made to feel shamed or threatened by someone: No Forced to sign papers or use money against will: No Feel afraid, touched in ways not wanted or hurt physically: No Poor eye contact, withdrawn, malnourished, cuts or bruises: No Screening Result: Negative result EASI Reference Information: Neto DENNISON, Erin C, Mindy D, Neal Adan.Development and validation of a tool to assist physicians identification of elder abuse: The Elder Abuse Suspicion Index (EASI ). Journal of Elder Abuse and Neglect, 2008; 20 (3): 276-300. - Elder Maltreatment Screen Quality Measures: Elder Maltreatment Screen and Follow-Up Plan Elder Maltreatment Screen: <Negative, No Follow-Up Plan Required> [G8734]
[2019-05-26] MEDS: OXYCODONE HCL/APAP 5MG/325MG TABLET PO PRN (08:42)
[2019-05-26] MEDS: HYDROCHLOROTHIAZIDE 25 MG TABLET PO SCH (09:25)
[2019-05-26] MEDS: GABAPENTIN 300 MG CAPSULE PO SCH (09:26)
[2019-05-26] MEDS: CYCLOBENZAPRINE 10MG TABLET PO PRN (09:26)
[2019-05-26] MEDS: PATIENT OWN MED: SULFASALAZINE 500 MG PO SCH (09:27)
== END 2019-05-26 17:25 | disposition home or self-care (01) | DRG 948 ==
LOC: MEDSURG 17:46
PROVIDERS: ADMIT Internal Medicine; ATTEND Internal Medicine
DX: R53.81 Other malaise (principal); N39.0 Urinary tract infection, site not specified; M54.5 Low back pain; R33.9 Retention of urine, unspecified; I10 Essential (primary) hypertension; J45.909 Unspecified asthma, uncomplicated; F17.210 Nicotine dependence, cigarettes, uncomplicated; Z98.61 Coronary angioplasty status; G62.9 Polyneuropathy, unspecified; N18.3 Chronic kidney disease, stage 3 (moderate); E11.9 Type 2 diabetes mellitus without complications; F43.10 Post-traumatic stress disorder, unspecified
CPT/HCPCS: 80048; 82728; 83550; 85025; 85027; 85610; 85730; 97530; 99306; 99310; 99316

== ENCOUNTER 2019-06-30 08:23 | Day surgery (SDC) | payer MEDICARE ==
--- NOTE | 2019-06-30 06:45 | History and Physical - Ferro ---
CHIEF COMPLAINT/HISTORY OF CHIEF COMPLAINT: This patient presents with a history of a post lumbar laminectomy radiculopathy. Due to the failure of therapy, a spinal cord stimulator trial was conducted on 06/08/19 with 75+% pain control. Due to the failure of therapy and the success of the trial, the patient presents for implantation of a permanent system. PAST MEDICAL HISTORY: Hypertension, cardiac arrhythmia, renal disease, pancreatitis, and degenerative arthritis. MEDICATIONS ON ADMISSION: List to be provided, does include OxyContin provided through [facility]. ALLERGIES: None. SYSTEMS REVIEW: The patient is appropriate in no acute distress. The remainder of the systems review is noncontributory. PHYSICAL EXAMINATION: Height is 5'1", weight is 118. No vital signs. HEENT: Within normal limits. LUNGS: Clear. HEART: Rapid and regular. ABDOMEN: Nontender. MUSCULOSKELETAL: Examination of the musculoskeletal system shows diffuse tenderness in the lumbar spine adjacent to the laminectomy scar. Range of motion causes pain primarily into the right leg across the front and back surface. Motor and sensory evaluation shows weakness and numbness. Ambulation - Assistive device utilized. NEUROLOGIC: Cranial nerves are intact. IMPRESSION: POST LUMBAR LAMINECTOMY SYNDROME, ICD-10 CODE M96.1 WITH RADICULOPATHY, ICD-10 CODE M54.16 AND M54.17. PLAN: The patient is here after the failure of all therapies for implantation of permanent spinal cord stimulator. The procedure will be considered outpatient although an overnight stay will be evaluated. JOB NUMBER: [id number] MTDD
[~2019-06-30 08:23] MED LIST: ACETAMINOPHEN 1,000 MG/100 ML BTL IVPB ONE; CEFAZOLIN 2 Gram 2 GM/50 ML BAG IVPB ONE; FAMOTIDINE 20MG TABLET PO ONE; MECLIZINE 25 MG TABLET PO ONE; METOCLOPRAMIDE 10 MG TABLET PO ONE
[2019-06-30] MEDS ORDERED: PROPOFOL 10 MG/ML VIAL IV ONE (08:24)
[2019-06-30] MEDS ORDERED: MIDAZOLAM HCL 2MG/2ML VIAL IV ONE (08:24)
[2019-06-30] MEDS ORDERED: FENTANYL PF 100MCG/2ML VIAL IV ONE (08:24)
[2019-06-30] MEDS ORDERED: CEFAZOLIN 1G VIAL IVP ONE (08:24)
[2019-06-30] MEDS ORDERED: LIDOCAINE 2% MDV (20MG/ML) 20ML VIAL IV ONE (08:24)
[2019-06-30] MEDS ORDERED: 0.9 % SODIUM CHLORIDE 1000ML 1,000 ML IV ONE (08:57)
[2019-06-30] MEDS ORDERED: LIDOCAINE 1% W/EPI 1:100,000 MDV 20 ML VIAL SQ ONE ×2 (09:38)
[2019-06-30] MEDS ORDERED: BUPIVACAINE 0.5% W/EPI MPF 30 ML VIAL SQ ONE ×2 (09:39)
--- NOTE | 2019-07-01 13:51 | Operative Note ---
DATE OF SURGERY: 06/30/2019 PREOPERATIVE DIAGNOSIS: Post lumbar laminectomy syndrome, ICD10 code M96.1 with radiculopathy, ICD10 code M54.16 and M54.17. OPERATION: 1. Fluoroscopic-guided epidural access left T11-12, placement of spinal cord stimulator lead 1 [employer] Infinion 16, 6 electrodes positioned left T7. 2. Fluoroscopic-guided epidural access left T12-L1, placement of spinal cord stimulator lead 2 [employer] 16, 6 electrodes positioned right T7. 3. Complex programming of lead 1 over 20 minutes followed by complex programming of lead 2 over 20 minutes. 4. Incision and subcutaneous dissection and anchoring of lead 1 and lead 2 to supraspinous fascia with a [employer] locking anchor. 5. Incision and subcutaneous dissection and creation of subcutaneous pouch at left posterior gluteal margin for placement of generator, site picked by patient, generator [employer] Wave[employer]. 6. Tunneling between pouches, placement of external portion of lead 1 and lead 2 into generator pouch, each lead interfaced with generator. 7. Placement of generator pouch, placement of leads into pouch, closure of both incisions using Stratafix suture, 2-0 fascia, 3-0 skin, and Dermabond closure. A complex recovery room programming internal generator home use 2 stimulators 20 minutes. INDICATION: This patient presents with a history of intractable lumbar radiculopathy that is post laminectomy in origin. Due to the failure of all therapies and the success of a stimulator trial, the patient presents today for implantation of permanent system. PROCEDURE: Intravenous line, vital sign monitoring, IV sedation. Prepped and draped with sterile technique. Under imaging, the epidural interspace from the left at T11-12 and 12-1 both marked, skin infiltrated at each using 2 separate curved access Epimed needles with loss of resistance, the space was accessed. At 11-12, spinal cord stimulator lead 1, a [employer] Infinion 16, 6 electrodes positioned left of the midline T7. With the access at 12-1, spinal cord stimulator lead 2, [employer] 16, 6 electrodes positioned right of T7. The access was atraumatic. There was no blood, no CSF. Complex programming of lead 1 over 20 minutes followed by complex programming of lead 2 over 20 minutes resulting in complete pattern stimulation across the back and into the legs. Patient indicating we had all the areas of the pain. She was given the option to implant and continue to program or remove. She opted to implant. The question was repeated with the same response. The skin above and below the needles was infiltrated. Incision was made and subcutaneous dissection was conducted to supraspinous fascia. Each of the leads was anchored to the supraspinous fascia with a [employer] locking anchor and nonabsorbable suture. At the left posterior gluteal margin, which was a site picked by the patient for the generator, skin infiltrated, incision made, and subcutaneous dissection was conducted to the supraspinous fascia forming an appropriate pouch of size and depth for the generator, a [employer] WaveWriter. A tunneling tool was then used to carry the leads in the generator pouch, and each lead was interfaced to the generator. Antibiotic irrigation and Bovie for hemostasis. The generator was then placed into the pouch. The leads were placed into their own pouch, and then both incisions were closed using Stratafix suture, 2-0 fascia, and 3-0 skin. Dermabond closure was then used to approximate the edges of both wounds. She was transported to recovery room stable. No side effects from the procedure or sedation. When fully awake and alert in the recovery room, complex programming was performed with the generator reestablishing stimulation and pain control, 20 minute programming. The patient and family member were instructed on use of the system, provided with information, error messaging, and then prepared for discharge. DISCHARGE INSTRUCTIONS: 1. The sites to remain clean and dry. No showering or bathing in any way that would disrupt the dressings. 2. Standard medications resumed including the antibiotic Levaquin 500 mg once a day for 14 days. 3. The office will contact the patient in 12-24 hours MTDD
--- NOTE | 2019-07-04 10:09 | RADIOLOGY REPORT ---
EXAM: SPINE, 1 VIEW HISTORY: STATUS POST SPINAL CANAL STIMULATOR IMPLANT. TECHNIQUE: Single AP portable supine view of the spine is obtained. This includes the T4 through L3-L4 levels. COMPARISON: Intraoperative radiographs of the spine dated 06/30/2019. FINDINGS: There is diffuse osteopenia. Mild dextrocurvature is identified centered at the presumed T12 level. The vertebral bodies are otherwise normal in alignment and height to the extent visualized. No acute fracture is seen. No lytic or blastic bone lesion. There are mild degenerative disc/endplate changes scattered throughout the visualized spine. Advanced facet arthropathy is demonstrated at the L3-L4 and L4-L5 levels. A dual-lead intraspinal stimulator is in place with leads appearing to enter the spinal canal near the thoracolumbar junction. Lead tips project at the presumed T6-T7 level. Post cholecystectomy changes. IMPRESSION: 1. TWO INTRASPINAL STIMULATOR LEADS IN PLACE WITH THEIR TIPS PROJECTING AT THE T6-T7 LEVEL. 2. DEGENERATIVE CHANGES SCATTERED THROUGHOUT THE VISUALIZED SPINE. JOB NUMBER: [id number] MTDD
== END 2019-06-30 11:22 | disposition home or self-care (01) ==
LOC: SUR 08:23
PROVIDERS: ATTEND Pain Medicine Interventional Pain Medicine
DX: M96.1 Postlaminectomy syndrome, not elsewhere classified (principal); M54.17 Radiculopathy, lumbosacral region; I10 Essential (primary) hypertension; E78.00 Pure hypercholesterolemia, unspecified; M19.90 Unspecified osteoarthritis, unspecified site; I50.9 Heart failure, unspecified; J45.909 Unspecified asthma, uncomplicated; F17.210 Nicotine dependence, cigarettes, uncomplicated
CPT/HCPCS: 72020; 85002; 93005; 95972; C1820; C1883; J0690; J7030